=== PATIENT | female | born 1945 | race Caucasian/White ===

== ENCOUNTER → 2020-04-04 10:58 | Outpatient (BNVA) | payer MEDICARE, OTHER, SELFPAY | PROVIDERS: Visit Provider Internal Medicine Cardiovascular Disease | DX: I25.10 Atherosclerotic heart disease of native coronary artery without angina pectoris (principal); Z95.2 Presence of prosthetic heart valve | CPT/HCPCS: 99212 ==

== ENCOUNTER 2020-06-06 12:15 | Outpatient (REF) | payer MEDICARE, OTHER, SELFPAY ==
[2020-06-06 14:40] LABS: Alanine Aminotransferase 26 U/L (0-31); Albumin Level 4.5 g/dL (3.5-5.0); Alkaline Phosphatase 143 U/L (39-117); Anion Gap 17 (12-20); Aspartate Amino Transferase 26 U/L (5-31); Bilirubin Total 0.7 mg/dL (0.0-1.0); Blood Urea Nitrogen 16 mg/dL (9-16); Calcium 9.6 mg/dL (8.4-10.2); Carbon Dioxide 32 mmol/L (22-29); Chloride 97 mmol/L (96-108); Cholesterol 184 mg/dL; Estimated Glomerular Filt Rate 54; Glucose Fasting 106 mg/dL (60-99); HDL Cholesterol 55 mg/dL; LDL Cholesterol Calculated 93 mg/dl; Potassium 4.7 mmol/L (3.3-5.1); Sodium 141 mmol/L (135-145); Total Protein 7.7 g/dL (6.5-8.0); Triglycerides 184 mg/dL
[2020-06-06 14:49] LABS: TSH reflex Free T4 4.04 uIU/mL (0.32-4.0)
[2020-06-06 15:20] LABS: Free T4 (Free Thyroxine) 1.07 ng/dL (0.71-1.85)
== END 2020-06-06 12:16 | disposition home or self-care (01) ==
LOC: HO.10HDL 12:15
PROVIDERS: Visit Provider Internal Medicine
DX: E03.9 Hypothyroidism, unspecified (principal); E78.00 Pure hypercholesterolemia, unspecified
CPT/HCPCS: 36415; 80053; 80061; 84439; 84443

== ENCOUNTER → 2020-10-03 10:41 | Outpatient (BNVA) | payer MEDICARE, OTHER, SELFPAY | PROVIDERS: Visit Provider Internal Medicine Cardiovascular Disease | DX: I25.10 Atherosclerotic heart disease of native coronary artery without angina pectoris (principal); Z95.2 Presence of prosthetic heart valve | CPT/HCPCS: 93005; 99212 ==

== ENCOUNTER → 2020-10-11 09:43 | Outpatient (REF) | payer MEDICARE, OTHER, SELFPAY ==
--- NOTE | 2020-10-11 09:46 | CA_ITS ---
Transthoracic Echocardiogram Patient (Last, First, Middle): Emma Mathis, Gender: Female Date of : 1945 Age: 75 Procedure Date: 10/11/2020 Procedure Type: Transthoracic Echocardiogram Location: OP Height: 154.94 cm Weight: 71.22 kg BSA: 1.70 m2 Heart Rate: bpm BP: 130 / 80 mmHg Under Cutting Machine Operator: RHONDA Referring MD: Dawood Shoemaker MD Symptoms: I42.9 - Cardiomyopathy, unspecified Study Quality: Technically Difficult ECG Rhythm: Sinus Conclusions: - The left ventricular systolic function is normal. The visually estimated ejection fraction is between 60-65%. - E/E prime ratio is >15, consistent with elevated filling pressures. - A bioprosthetic aortic valve is present. The prosthetic aortic valve appears to be functioning normally. Findings Left Ventricle Normal left ventricular cavity size. There is normal left ventricular wall thickness. The left ventricular systolic function is normal. The visually estimated ejection fraction is between 60-65%. The calculated ejection fraction is 63% by biplane method. There is no evidence of regional wall motion abnormalities. E/E prime ratio is >15, consistent with elevated filling pressures. Evidence suggests grade I (mild) diastolic dysfunction. Right Ventricle Normal right ventricular cavity size. There is low normal right ventricular systolic function. Atria Both atria are normal in size. Aortic Valve A bioprosthetic aortic valve is present. The prosthetic aortic valve appears to be functioning normally. The mean gradient is 7 mmHg. There is no aortic valve regurgitation. Mitral Valve There is mild mitral annular calcification. There is mild mitral valve regurgitation. There is no mitral valve stenosis. Pulmonic Valve The pulmonic valve was not well visualized. Tricuspid Valve Normal tricuspid valve structure. There is mild tricuspid valve regurgitation. The pulmonary artery systolic pressure is normal. Great Vessels The asc aorta is normal in size. Venous The inferior vena cava is normal in size and collapses greater than 50% with inspiration. Pericardium/Pleural There is no evidence of pericardial effusion. Prior Study Comparison No significant change compared to prior study dated: 05/13/2019. Measurements M-Mode Liner Measurements Normals - Women/Men AOV Cusps: 1.10 1.5-2.6 cm/m2 2D Linear Measurements IVSd: 0.90 0.6-0.9/0.6-1.0 cm LVIDd: 4.27 3.9-5.3/4.2-5.9 cm LVIDd Index: 2.51 2.4-3.2/2.2-3.1 cm/m2 LVIDs: 3.38 2.0-3.6 cm LVPWd: 0.77 0.7-1.1 cm Ao Root: 1.60 2.1-3.5 cm LA Diam: 3.80 2.7-3.8/3.0-4.0 cm LAIDs Index: 2.24 1.5-2.3 cm/m2 LV Mass: 136.23 67-162/88-224 g LV Mass Index: 80.14 43-95/49-115 g/m2 LVOT Diam: 1.30 3.0+(-)1.3 cm 2D Systolic Function EF 4C: 63.00 >55% EF 2C: 61.90 >55% EF BiP: 62.80 >55% Mitral Valve MV Pk E: 1.21 MV PK A: 1.04 MV Decel Time: 273.00 E/A: 1.20 E'Lateral: 8.49 E'Medial: 3.15 E/E' Med: 38.40 E/E' Lat: 14.30 PHT: 80.00 MVA PHT: 2.75 Decel [place]: 4.41 Aortic Valve AoV Pk Almas: 1.82 AoV Mn Almas: 1.28 AoV VTI: 0.38 AoV Pk Grad: 13.00 Aov Mn Grad: 7.00 TATIANA Cont.VTI: 0.68 LVOT LVOT Pk Almas: 0.82 LVOT Mn Almas: 0.62 LVOT VTI: 0.20 LVOT Pk Grad: 3.00 LVOT Mn Grad: 2.00 LVOT Diam: 1.30 LVOT Area: 1.33 Diastolic Function MV Pk E: 1.21 MV Pk A: 1.04 E/A: 1.20 E'Medial: 3.15 E/E' Med: 38.40 E' Laterial: 8.49 E/E' Lat: 14.30 Tricuspid Valve TR Pk Almas: 2.57 TR Pk Grad: 26.00 RA Press: 3.00 RVSP: 29.00 Great Vessels Aorta Ao Root-2D: 1.60 2.0-3.7 cm Ao Asc: 1.60 2.1-3.4 cm Ao Arch: 1.60 Pulmonary Valve PV Pk Almas: 0.92 Peak PV Grad: 3.00 Updated in Other Vendor System with Status of Final Fili Barger MD electronically signed on 10/11/2020 4:12:44 PM with status of Final
== END ==
LOC: HO.CARD 09:43
PROVIDERS: Visit Provider Internal Medicine Cardiovascular Disease
DX: I42.9 Cardiomyopathy, unspecified (principal); Z95.2 Presence of prosthetic heart valve
CPT/HCPCS: 93306

== ENCOUNTER → 2021-03-30 09:51 | Outpatient (BNVA) | payer MEDICARE, OTHER, SELFPAY | PROVIDERS: PCP Internal Medicine; Visit Provider Internal Medicine Cardiovascular Disease | DX: I25.10 Atherosclerotic heart disease of native coronary artery without angina pectoris (principal); Z95.2 Presence of prosthetic heart valve | CPT/HCPCS: 99212 ==

== ENCOUNTER 2022-02-06 09:49 | Outpatient (REF) | payer MEDICARE, OTHER, SELFPAY ==
[2022-02-06 13:59] LABS: MANUAL DIFF FLAG NO
[2022-02-06 14:05] LABS: Basophils Percent Auto 0.5 % (0-2); Eosinophils Absolute Auto 0.2 X10*3/uL (0.0-0.4); Eosinophils Percent Auto 2.1 % (0-4); Hematocrit 41.8 % (37.0-47.0); Hemoglobin 13.7 g/dl (12.0-16.0); Imm Gran Abs Auto 0.03 X10*3/uL (0.00-0.03); Imm Gran Pct Auto 0.4 % (0.0-0.4); Lymphocytes Absolute Auto 1.5 X10*3/uL (1.2-4.9); Lymphocytes Percent Auto 18.4 % (20-40); Mean Corpuscular HGB Conc 32.8 g/dl (31.0-35.0); Mean Corpuscular Hemoglobin 30.2 pg (27.0-33.0); Mean Corpuscular Volume 92.1 fL (80.0-98.0); Mean Platelet Volume 12.7 fL (9.4-12.3); Monocytes Absolute Auto 0.9 X10*3/uL (0.1-1.2); Monocytes Percent Auto 10.6 % (2-11); Neutrophils Absolute Auto 5.7 x10*3/uL (2.0-8.3); Platelet Count 218 X10*3/uL (160-400); Red Blood Count 4.54 X10*6/uL (4.20-5.50); Red Cell Distribution Width 12.1 % (11.0-16.0); White Blood Count 8.4 X10*3/uL (4.8-10.8)
[2022-02-06 14:17] LABS: Alanine Aminotransferase 24 U/L (0-31); Albumin Level 4.4 g/dL (3.5-5.0); Alkaline Phosphatase 113 U/L (39-117); Anion Gap 17 (12-20); Aspartate Amino Transferase 30 U/L (5-31); Bilirubin Total 0.7 mg/dL (0.0-1.0); Blood Urea Nitrogen 14 mg/dL (9-16); Calcium 9.4 mg/dL (8.4-10.2); Carbon Dioxide 32 mmol/L (22-29); Chloride 98 mmol/L (96-108); Cholesterol 172 mg/dL; Estimated Glomerular Filt Rate 50; Glucose Random 107 mg/dL (60-115); HDL Cholesterol 53 mg/dL; LDL Cholesterol Calculated 93 mg/dl; Potassium 4.1 mmol/L (3.3-5.1); Sodium 143 mmol/L (135-145); Total Protein 7.3 g/dL (6.5-8.0); Triglycerides 134 mg/dL
[2022-02-06 14:40] LABS: Free T4 (Free Thyroxine) 1.16 ng/dL (0.71-1.85); Thyroid Stimulating Hormone 2.39 uIU/mL (0.32-4.0); Vitamin D 25-OH Total 35.1 ng/mL (>30)
== END 2022-02-06 09:50 | disposition home or self-care (01) ==
LOC: HO.MANLDS 09:49
PROVIDERS: Visit Provider Internal Medicine
DX: E03.9 Hypothyroidism, unspecified (principal); E78.00 Pure hypercholesterolemia, unspecified; I35.0 Nonrheumatic aortic (valve) stenosis
CPT/HCPCS: 36415; 80053; 80061; 82306; 84439; 84443; 85025

== ENCOUNTER → 2022-04-02 09:48 | Outpatient (BNVA) | payer MEDICARE, OTHER, SELFPAY | PROVIDERS: PCP Internal Medicine; Visit Provider Internal Medicine Cardiovascular Disease | DX: I25.10 Atherosclerotic heart disease of native coronary artery without angina pectoris (principal); Z95.2 Presence of prosthetic heart valve | CPT/HCPCS: 93005; 99212 ==

== ENCOUNTER → 2022-09-21 08:36 | Outpatient (REF) | payer MEDICARE, OTHER, SELFPAY ==
--- NOTE | 2022-09-21 08:39 | CA_ITS ---
Transthoracic Echocardiogram Patient (Last, First, Middle): Emma Mathis, Gender: Female Date of : 1945 Age: 77 Procedure Date: 09/21/2022 Procedure Type: Transthoracic Echocardiogram Location: OP Height: 154.94 cm Weight: 70.31 kg BSA: 1.70 m2 Heart Rate: 74 bpm BP: 138 / 68 mmHg Plsql Developer: COLLINS Referring MD: Dawood Shoemaker MD Experimental Machining Lab Manager: Dawood Shoemaker MD Symptoms: Z95.2 - Presence of prosthetic heart valve Study Quality: Adequate ECG Rhythm: Sinus Conclusions: - Normal left ventricular size and systolic function. There is mildly increased left ventricular wall thickness. The visually estimated ejection fraction is between 55-60%. - E/E prime ratio is >15, consistent with elevated filling pressures. - Normal right ventricular cavity size and systolic function. - The left atrium is likely dilated. The right atrium is normal in size. - A bioprosthetic aortic valve is present. The prosthetic aortic valve appears to be functioning normally. There is no aortic valve regurgitation. Findings Left Ventricle Normal left ventricular size and systolic function. There is mildly increased left ventricular wall thickness. The visually estimated ejection fraction is between 55-60%. There is no evidence of regional wall motion abnormalities. There is paradoxical septal motion consistent with a left bundle branch block. Abnormal diastolic function is noted. Spectral Doppler is indicative of a pseudonormal filling pattern. E/E prime ratio is >15, consistent with elevated filling pressures. Right Ventricle Normal right ventricular cavity size and systolic function. Atria The left atrium is likely dilated. The right atrium is normal in size. Aortic Valve A bioprosthetic aortic valve is present. The prosthetic aortic valve appears to be functioning normally. There is no aortic valve regurgitation. Mitral Valve There is moderate mitral annular calcification. There is trace mitral valve regurgitation. There is no mitral valve stenosis. Pulmonic Valve Normal pulmonic valve structure and function. There is trace pulmonic valve regurgitation. Tricuspid Valve Normal tricuspid valve structure and function. There is mild tricuspid valve regurgitation. Normal right atrial pressure. There is no evidence of pulmonary hypertension. Great Vessels The visualized portions of the pulmonary artery and branches are normal. Venous The inferior vena cava is normal in size and collapses greater than 50% with inspiration. Pericardium/Pleural There is no evidence of pericardial effusion. Prior Study Comparison No significant change compared to prior study dated: 10/11/2020. Measurements 2D Linear Measurements IVSd: 1.05 0.6-0.9/0.6-1.0 cm LVIDd: 3.78 3.9-5.3/4.2-5.9 cm LVIDd Index: 2.22 2.4-3.2/2.2-3.1 cm/m2 LVIDs: 2.93 2.0-3.6 cm LVPWd: 0.92 0.7-1.1 cm LA Diam: 4.10 2.7-3.8/3.0-4.0 cm LAIDs Index: 2.41 1.5-2.3 cm/m2 LV Mass: 141.65 67-162/88-224 g LV Mass Index: 83.32 43-95/49-115 g/m2 LVOT Diam: 1.80 3.0+(-)1.3 cm 2D Systolic Function EF 4C: 55.40 >55% EF 2C: 48.90 >55% EF BiP: 51.50 >55% Mitral Valve MV VTI: 0.32 MV Pk Almas: 1.23 MV Mn Almas: 0.79 MV Pk Grad: 6.00 MV Mn Grad: 3.00 MV Pk E: 1.31 MV PK A: 1.07 MV Decel Time: 274.00 E/A: 1.20 E'Lateral: 6.73 E'Medial: 2.47 E/E' Med: 53.00 E/E' Lat: 19.50 PHT: 80.00 MVA PHT: 2.75 MVA Continuity: 1.19 Decel [place]: 4.80 Aortic Valve AoV Pk Almas: 1.66 AoV Mn Almas: 1.13 AoV VTI: 0.35 AoV Pk Grad: 11.00 Aov Mn Grad: 6.00 TATIANA Cont.VTI: 1.08 LVOT LVOT Pk Almas: 0.69 LVOT Mn Almas: 0.49 LVOT VTI: 0.15 LVOT Pk Grad: 2.00 LVOT Mn Grad: 1.00 LVOT Diam: 1.80 LVOT Area: 2.54 Diastolic Function MV Pk E: 1.31 MV Pk A: 1.07 E/A: 1.20 E'Medial: 2.47 E/E' Med: 53.00 E' Laterial: 6.73 E/E' Lat: 19.50 Right Ventricle TAPSE (mm): 15.50 TVS' Almas: 9.20 Tricuspid Valve TR Pk Almas: 2.40 TR Pk Grad: 23.00 RA Press: 3.00 RVSP: 26.00 Great Vessels Aorta Ao Asc: 2.40 2.1-3.4 cm Pulmonary Veins Pulm Vein S/D 0.70 Pulmonary Valve PV Pk Almas: 0.86 Peak PV Grad: 3.00 Updated in Other Vendor System with Status of Final Dawood Shoemaker MD electronically signed on 09/21/2022 5:00:46 PM with status of Final
== END ==
LOC: HO.CARD 08:36
PROVIDERS: PCP Internal Medicine; Visit Provider Internal Medicine Cardiovascular Disease
DX: Z95.2 Presence of prosthetic heart valve (principal)
CPT/HCPCS: 93306

== ENCOUNTER → 2022-10-17 08:40 | Outpatient (BNVA) | payer MEDICARE, OTHER, SELFPAY | PROVIDERS: PCP Internal Medicine; Referring Provider Internal Medicine; Visit Provider Internal Medicine Cardiovascular Disease | DX: I25.10 Atherosclerotic heart disease of native coronary artery without angina pectoris (principal); I10 Essential (primary) hypertension; Z95.4 Presence of other heart-valve replacement | CPT/HCPCS: 99212 ==

== ENCOUNTER 2022-12-24 11:02 | Outpatient (REF) | payer MEDICARE, OTHER, SELFPAY ==
[2022-12-24 12:56] LABS: MANUAL DIFF FLAG NO
[2022-12-24 13:08] LABS: Basophils Percent Auto 0.4 % (0-2); Eosinophils Absolute Auto 0.2 X10*3/uL (0.0-0.4); Eosinophils Percent Auto 2.3 % (0-4); Hematocrit 46.6 % (37.0-47.0); Hemoglobin 15.4 g/dl (12.0-16.0); Imm Gran Abs Auto 0.04 X10*3/uL (0.00-0.03); Imm Gran Pct Auto 0.4 % (0.0-0.4); Lymphocytes Absolute Auto 1.7 X10*3/uL (1.2-4.9); Mean Corpuscular Hemoglobin 30.7 pg (27.0-33.0); Mean Corpuscular Volume 92.8 fL (80.0-98.0); Mean Platelet Volume 12.4 fL (9.4-12.3); Monocytes Absolute Auto 1.1 X10*3/uL (0.1-1.2); Monocytes Percent Auto 11.6 % (2-11); Neutrophils Absolute Auto 6.4 x10*3/uL (2.0-8.3); Neutrophils Percent Auto 67.3 % (45-73); Platelet Count 270 X10*3/uL (160-400); Red Blood Count 5.02 X10*6/uL (4.20-5.50); Red Cell Distribution Width 11.7 % (11.0-16.0); White Blood Count 9.5 X10*3/uL (4.8-10.8)
[2022-12-24 13:55] LABS: Alanine Aminotransferase 17 U/L (0-31); Albumin Level 4.9 g/dL (3.5-5.0); Alkaline Phosphatase 130 U/L (39-117); Anion Gap 16 (12-20); Aspartate Amino Transferase 26 U/L (5-31); Bilirubin Total 0.7 mg/dL (0.0-1.0); Blood Urea Nitrogen 16 mg/dL (9-16); Calcium 10.6 mg/dL (8.4-10.2); Carbon Dioxide 31 mmol/L (22-29); Chloride 99 mmol/L (96-108); Estimated Glomerular Filt Rate 50; Glucose Random 105 mg/dL (60-115); Iron 94 mcg/dL (30-160); Percent Iron Saturation 32 % (15-50); Sodium 142 mmol/L (135-145); Total Iron Binding Capacity 298 mcg/dL (228-428); Total Protein 8.9 g/dL (6.5-8.0); Unsaturated Iron Binding 204 ug/dL
[2022-12-24 14:14] LABS: Ferritin 162 ng/mL (10-250); Free T4 (Free Thyroxine) 1.04 ng/dL (0.71-1.85); Thyroid Stimulating Hormone 3.58 uIU/mL (0.32-4.0)
[2022-12-27 01:35] LABS: Zinc 97 mcg/dL (60-130)
== END 2022-12-24 11:03 | disposition home or self-care (01) ==
LOC: HO.MANLDS 11:02
PROVIDERS: Visit Provider Physician Assistant
DX: E03.8 Other specified hypothyroidism (principal); R42 Dizziness and giddiness
CPT/HCPCS: 36415; 80053; 82728; 83540; 84439; 84443; 84630; 85025

== ENCOUNTER 2022-12-25 14:14 | Outpatient (REF) | payer MEDICARE, OTHER, SELFPAY ==
[2022-12-25 17:52] LABS: Calcium 10.8 mg/dL (8.4-10.2); Phosphorus 3.6 mg/dL (2.7-4.5)
[2022-12-25 18:07] LABS: Free T4 (Free Thyroxine) 0.97 ng/dL (0.71-1.85)
[2022-12-26 16:29] LABS: Calcium (PTHI) 9.9 mg/dL (8.6-10.4); PTHI 55 pg/mL (16-77)
[2022-12-27 10:49] LABS: Thyroid Peroxidase Antibodies <1 IU/mL (<9)
== END 2022-12-25 14:15 | disposition home or self-care (01) ==
LOC: HO.MANLDS 14:14
PROVIDERS: Visit Provider Physician Assistant
DX: E83.52 Hypercalcemia (principal)
CPT/HCPCS: 36415; 82310; 83970; 84100; 84439; 84443; 86376

== ENCOUNTER 2023-04-24 09:02 | Outpatient (AMB) | payer MEDICARE, OTHER, SELFPAY ==
[2023-04-24 09:12] VITALS: BP 120/60; PULSE 81; BMI 28.2
--- NOTE | 2023-04-24 09:12 | A.OFFVIS_ITS ---
Intake Vital Signs 04/24/23 09:12 Height 5 ft 1 in Weight 149 lb 7.574 oz BMI 28.2 BP 120/60 Blood Pressure Location Lt brachial Position Sitting Pulse 81 Intake Visit Reasons: 6 mth f/up Intake Note: 6 mth f/up/ pt its feeling fine. 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 Accompanied by: Self / Same As Patient Allergies penicillin G Allergy (Unknown, Verified 10/17/22 09:16) nausea and vomiting vancomycin [VANCOMYCIN] Allergy (Unknown, Verified 10/17/22 09:16) ITCHY/PASSED OUT, anaphylaxis Medication List - Last Reconciled 04/24/23 by Dawood Shoemaker MD aspirin 81 mg PO DAILY atenolol 50 mg PO DAILY atorvastatin 10 mg PO DAILY cholecalciferol (vitamin D3) 25 mcg PO DAILY diltiazem HCl 240 mg PO DAILY famotidine 20 mg PO BID 90 days furosemide 20 mg PO; 2 tabs in AM 1 tab PM levothyroxine 25 mcg PO HPI HPI Comments History of Present Illness Details Pleasant 78-year-old female who is here for follow-up. 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 She had aortic valve replacement but developed aortic insufficiency and stenosis. She had valve in valve transcatheter aortic valve replacement done and has been doing well. She has no chest pain. No bleeding issues. She had left knee surgery recently and is walking more. Continues to be asymptomatic. No chest pain or shortness of breath. Blood pressure control is good. She had repeat echocardiography showing normally functioning bioprosthetic valve in aortic position. She continues to be clinically stable. 04/24/2023: She returns for follow-up. She had echocardiography in August 2022. LVEF was 55-60%, elevated filling pressures, normal right ventricular size and function, bioprosthetic valve in aortic position which is functioning normally without any aortic insufficiency. Denying any new complaints. Chest discomfort or shortness of breath. Blood pressure is well controlled. [facility] Surgical History History of cataract surgery H/O right mastectomy History of lumpectomy Aortic valve replaced History of knee surgery Family History Mother CVD (cardiovascular disease) Father Diabetes CVD (cardiovascular disease) Sister Cancer Brother Heart disease Social History Alcohol intake: current Alcohol intake frequency: holidays/special occasions only Alcohol type: wine Patient Tobacco Use Status: Former Tobacco user Quit Date: 1984 Review of Systems Const Reports chills, Reports fatigue, Reports fever(s), Reports frequent falls, Reports weakness, Reports weight gain and Reports weight loss ENT Reports dizziness Card Reports chest pain, Reports leg edema, Reports lightheadedness, Reports palpitations, Reports dyspnea and Reports dyspnea on exertion Resp Reports cough, Reports dyspnea and Reports dyspnea on exertion GI Reports hematochezia Musc Reports abnormal gait, Reports muscle weakness, Reports numbness, Reports radiating pain into limb and Reports tingling Neuro Reports abnormal gait, Reports dizziness, Reports frequent falls, Reports numbness, Reports tingling and Reports weakness Endo Reports fatigue and Reports palpitations Physical Exam Vital Signs: BMI result Body Mass Index 28.2 GENERAL APPEARANCE: in no acute distress, well developed, well nourished. NECK/THYROID: Systolic murmur radiating to carotids, no jugular venous distention. HEART: Systolic murmur, regular rate and rhythm, S1, S2 normal. LUNGS: clear to auscultation bilaterally. ABDOMEN: normal, bowel sounds present, soft, nontender, nondistended. EXTREMITIES: no clubbing, cyanosis, or edema. PERIPHERAL PULSES: equal. NEUROLOGIC: nonfocal, alert and oriented. PSYCH: mood/affect full range. Office Procedures EKG Details: Sinus rhythm 81 beats per minute, leftward axis, left bundle branch block. [id number], Complete Assessment & Plan Assessment & Plan (1) CAD (coronary artery disease): Code(s): I25.10 - Atherosclerotic heart disease of [place] coronary artery without angina pectoris (2) S/P TAVR (transcatheter aortic valve replacement): Code(s): Z95.2 - Presence of prosthetic heart valve Plan Pleasant 78-year-old female who is here for follow-up. She had valve in valve TAVR for aortic insufficiency and stenosis. She has been doing well since then. Last echocardiography in August 2022 has shown normally functioning bioprosthetic valve without any aortic insufficiency. Blood pressure is well controlled. She is not endorsing any anginal symptoms. She will see us back in 1 year. Thank you for allowing me to participate in the care of your patient. Please feel free to contact me if you have any questions. Coding Level of Care Code Est Pt Level 4 (25744) Diagnoses CAD (coronary artery disease) I25.10 S/P TAVR (transcatheter aortic valve replacement) Z95.2 CPT Codes EKG - CPT: 63400-[id number], Complete ([id number])
== END 2023-04-24 09:37 | disposition home or self-care (01) ==
PROVIDERS: PCP Internal Medicine; Visit Provider Internal Medicine Cardiovascular Disease
DX: I25.10 Atherosclerotic heart disease of native coronary artery without angina pectoris (principal); Z95.2 Presence of prosthetic heart valve
CPT/HCPCS: 93010; 99214

== ENCOUNTER → 2023-04-24 09:02 | Outpatient (BNVA) | payer MEDICARE, OTHER, SELFPAY | PROVIDERS: PCP Internal Medicine; Visit Provider Internal Medicine Cardiovascular Disease | DX: I25.10 Atherosclerotic heart disease of native coronary artery without angina pectoris (principal); Z95.2 Presence of prosthetic heart valve | CPT/HCPCS: 93005; 99212 ==

== ENCOUNTER 2023-12-24 07:25 | Outpatient (REF) | payer MEDICARE, OTHER, SELFPAY ==
[2023-12-24 10:41] LABS: MANUAL DIFF FLAG NO
[2023-12-24 10:53] LABS: Basophils Absolute Auto 0.1 X10*3/uL (0.0-0.2); Basophils Percent Auto 0.5 % (0-2); Eosinophils Absolute Auto 0.3 X10*3/uL (0.0-0.4); Eosinophils Percent Auto 2.2 % (0-4); Hematocrit 41.5 % (37.0-47.0); Hemoglobin 13.8 g/dl (12.0-16.0); Imm Gran Abs Auto 0.08 X10*3/uL (0.00-0.03); Imm Gran Pct Auto 0.7 % (0.0-0.4); Lymphocytes Absolute Auto 2.2 X10*3/uL (1.2-4.9); Mean Corpuscular HGB Conc 33.3 g/dl (31.0-35.0); Mean Corpuscular Hemoglobin 31.9 pg (27.0-33.0); Mean Corpuscular Volume 96.1 fL (80.0-98.0); Mean Platelet Volume 12.1 fL (9.4-12.3); Monocytes Absolute Auto 1.2 X10*3/uL (0.1-1.2); Neutrophils Absolute Auto 7.8 x10*3/uL (2.0-8.3); Neutrophils Percent Auto 67.6 % (45-73); Platelet Count 261 X10*3/uL (160-400); Red Blood Count 4.32 X10*6/uL (4.20-5.50); White Blood Count 11.5 X10*3/uL (4.8-10.8)
[2023-12-24 11:10] LABS: Alanine Aminotransferase 14 U/L (0-31); Albumin Level 4.2 g/dL (3.5-5.0); Alkaline Phosphatase 110 U/L (39-117); Anion Gap 12 (12-20); Aspartate Amino Transferase 20 U/L (5-31); Bilirubin Total 0.6 mg/dL (0.0-1.0); Blood Urea Nitrogen 19 mg/dL (9-16); Calcium 9.9 mg/dL (8.4-10.2); Carbon Dioxide 33 mmol/L (22-29); Chloride 98 mmol/L (96-108); Cholesterol 202 mg/dL (<200); Estimated Glomerular Filt Rate 53; Glucose Random 135 mg/dL (60-115); HDL Cholesterol 59 mg/dL (>40); LDL Cholesterol Calculated 116 mg/dL (<100); Potassium 4.7 mmol/L (3.3-5.1); Sodium 138 mmol/L (135-145); Total Protein 7.5 g/dL (6.5-8.0); Triglycerides 139 mg/dL (<150)
[2023-12-24 11:31] LABS: Free T4 (Free Thyroxine) 0.97 ng/dL (0.71-1.85)
== END 2023-12-24 07:26 | disposition home or self-care (01) ==
LOC: HO.10HDL 07:25
PROVIDERS: Visit Provider Internal Medicine
DX: E78.2 Mixed hyperlipidemia (principal); E03.8 Other specified hypothyroidism
CPT/HCPCS: 36415; 80053; 80061; 84439; 84443; 85025

== ENCOUNTER 2024-06-08 15:15 | Outpatient (AMB) | payer MEDICARE, OTHER, SELFPAY ==
--- NOTE | 2024-06-08 15:24 | MHC.OFFVIS ---
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 Accompanied by: Self / Same As Patient Allergies penicillin G Allergy (Unknown, Verified 10/17/22 09:16) nausea and vomiting vancomycin [VANCOMYCIN] Allergy (Unknown, Verified 10/17/22 09:16) ITCHY/PASSED OUT, anaphylaxis Medication List - Last Reconciled 06/08/24 by Dawood Shoemaker MD aspirin 81 mg PO DAILY atenolol 50 mg PO DAILY atorvastatin 10 mg PO DAILY cholecalciferol (vitamin D3) 25 mcg PO DAILY diltiazem HCl CD 240 mg PO DAILY famotidine 20 mg PO BID 90 days furosemide 20 mg PO; 2 tabs in AM 1 tab PM levothyroxine 25 mcg PO HPI Comments Details: Pleasant 79-year-old female who is here for follow-up. 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 She had aortic valve replacement but developed aortic insufficiency and stenosis. She had valve in valve transcatheter aortic valve replacement done and has been doing well. She has no chest pain. No bleeding issues. She had left knee surgery recently and is walking more. Continues to be asymptomatic. No chest pain or shortness of breath. Blood pressure control is good. She had repeat echocardiography showing normally functioning bioprosthetic valve in aortic position. She continues to be clinically stable. 04/24/2023: She returns for follow-up. She had echocardiography in August 2022. LVEF was 55-60%, elevated filling pressures, normal right ventricular size and function, bioprosthetic valve in aortic position which is functioning normally without any aortic insufficiency. Denying any new complaints. Chest discomfort or shortness of breath. Blood pressure is well controlled. 06/08/24: She is here for f/u. She has been experiencing balance issues x 1 year. She is saying she tends to fall fowards or backwards. She has fallen a few times. She is saying this started after the COVID booster. She said she had head manuevering by PT for what appears like BPPV with some improvement but still has a lot of symptoms. [facility] Surgical History History of cataract surgery H/O right mastectomy History of lumpectomy Aortic valve replaced History of knee surgery Family History Mother CVD (cardiovascular disease) Father Diabetes CVD (cardiovascular disease) Sister Cancer Brother Heart disease Social History Alcohol intake: current Alcohol intake frequency: holidays/special occasions only Alcohol type: wine Patient Tobacco Use Status: Former Tobacco user Review of Systems Const Denies chills, Denies fatigue, Denies fever(s), Denies weight gain and Denies weight loss ENT Denies dizziness Card Denies chest pain, Denies leg edema, Denies lightheadedness, Denies palpitations, Denies dyspnea on exertion, Denies orthopnea and Denies other Resp Denies cough and Denies dyspnea on exertion GI Denies hematochezia and Denies change in stool character Musc Denies abnormal gait, Denies muscle weakness, Denies numbness, Denies radiating pain into limb and Denies tingling Neuro Denies abnormal gait, Denies dizziness, Denies numbness and Denies tingling Endo Denies fatigue and Denies palpitations Physical Exam Vital Signs: Last Vital Signs Pulse 75 06/08/24 15:25 BP 142/58 H 06/08/24 15:25 BMI result Body Mass Index 27.4 GENERAL APPEARANCE: in no acute distress, well developed, well nourished. NECK/THYROID: Systolic murmur radiating to carotids, no jugular venous distention. HEART: No murmur, regular rate and rhythm, S1, S2 normal. LUNGS: clear to auscultation bilaterally. ABDOMEN: normal, bowel sounds present, soft, nontender, nondistended. EXTREMITIES: no clubbing, cyanosis, or edema. PERIPHERAL PULSES: equal. NEUROLOGIC: nonfocal, alert and oriented. PSYCH: mood/affect full range. Office Procedures EKG Details: Sinus rhythm 75 beats per minute, left axis, left bundle-branch block with QRS duration 26 milliseconds, prolonged QT with QTC 515 milliseconds. [id number], Complete Assessment & Plan Assessment & Plan (1) S/P TAVR (transcatheter aortic valve replacement): Code(s): Z95.2 - Presence of prosthetic heart valve Category: Medical Plan 79 year old with TAVR in TAVR for AI-doing well. Clinically stable. No angina. She has balance issues. Some features seem like BPPV. I am giving her script for meclizine PRN. She will discuss with PCP about referral to PT for Shanda-Hallpike maneuver. BP stable. f/u in 1 year. Medications: New meclizine 25 mg PO DAILY PRN 30 tabs 0RF motion sickness Coding Level of Care Code Est Pt Level 4 (59407) Diagnoses S/P TAVR (transcatheter aortic valve replacement) Z95.2 CPT Codes EKG - CPT: 02131-[id number], Complete ([id number])
[2024-06-08 15:25] VITALS: BP 142/58; PULSE 75; BMI 27.4
== END 2024-06-08 15:57 | disposition home or self-care (01) ==
PROVIDERS: PCP Internal Medicine; Visit Provider Internal Medicine Cardiovascular Disease
DX: Z95.2 Presence of prosthetic heart valve (principal)
CPT/HCPCS: 93010; 99214

== ENCOUNTER → 2024-06-08 15:15 | Outpatient (BNVA) | payer MEDICARE, OTHER, SELFPAY | PROVIDERS: PCP Internal Medicine; Visit Provider Internal Medicine Cardiovascular Disease | DX: I44.7 Left bundle-branch block, unspecified (principal); R94.31 Abnormal electrocardiogram [ECG] [EKG]; Z95.2 Presence of prosthetic heart valve | CPT/HCPCS: 93005; 99212 ==

== ENCOUNTER 2024-06-23 12:04 | Outpatient (REF) | payer MEDICARE, OTHER, SELFPAY ==
[2024-06-23 13:18] LABS: Estimated Average Glucose 117 mg/dL; Hemoglobin A1C 139.7066 umol/L; Hemoglobin A1c % 5.7 % (<6.0)
--- OUTSIDE RECORDS SUMMARY | 2024-06-23 14:46 | XMS_ITS | Data Portability ---
Author Organization [facility] Home Service Address [address] [place] [address] Assessment Encounter Date Assessment Date Assessment LastModified by Organization Details LastModified Time 02/25/2023 02/25/2023 [id number] [place] [id number] (PROJECT CONTROLLER) [facility] MUST MEET 2 OUT OF 3 ELEMENTS: PROBLEMS, DATA OR RISK ELEMENT 1: PROBLEMS ADDRESSED 1 OR MORE CHRONIC ILLNESS WITH EXACERBATION OR 2 OR MORE STABLE CHRONIC ILLNESSES OR 1 UNDIAGNOSED NEW PROBLEM OR 1 ACUTE ILLNESS W/SYMPTOMS OR 1 ACUTE COMPLICATED INJURY ELEMENT 2: DATA MUST MEET 1 OF 3 CATEGORIES CATEGORY 1: REVIEW OF PRIOR EXTERNAL NOTES, REVIEW OF RESULTS, ORDERING OF EACH TEST, ASSESSMENT REQUIRING INDEPENDENT HISTORIAN OR CATEGORY 2: INDEPENDENT INTERPRETATION OF TESTS BY ANOTHER PHYSICIAN OR SPECIALIST OR CATEGORY 3: DISCUSSION OF MGT OR TEST INTERPRETATION W/EXTERNAL PHYSICIAN OR SPECIALIST ELEMENT 3: RISK RISK OF COMPLICATIONS AND/OR MORBIDITY OR MORTALITY OF PATIENT MANAGEMENT PROVIDER MUST THOROUGHLY DOCUMENT EACH ELEMENT THAT IS COVERED Not available 02/25/2023 11:04:54 03/29/2023 03/29/2023 [id number] [place] [id number] (PROJECT CONTROLLER) [facility] MUST MEET 2 OUT OF 3 ELEMENTS: PROBLEMS, DATA OR RISK ELEMENT 1: PROBLEMS ADDRESSED 1 OR MORE CHRONIC ILLNESS WITH EXACERBATION OR 2 OR MORE STABLE CHRONIC ILLNESSES OR 1 UNDIAGNOSED NEW PROBLEM OR 1 ACUTE ILLNESS W/SYMPTOMS OR 1 ACUTE COMPLICATED INJURY ELEMENT 2: DATA MUST MEET 1 OF 3 CATEGORIES CATEGORY 1: REVIEW OF PRIOR EXTERNAL NOTES, REVIEW OF RESULTS, ORDERING OF EACH TEST, ASSESSMENT REQUIRING INDEPENDENT HISTORIAN OR CATEGORY 2: INDEPENDENT INTERPRETATION OF TESTS BY ANOTHER PHYSICIAN OR SPECIALIST OR CATEGORY 3: DISCUSSION OF MGT OR TEST INTERPRETATION W/EXTERNAL PHYSICIAN OR SPECIALIST ELEMENT 3: RISK RISK OF COMPLICATIONS AND/OR MORBIDITY OR MORTALITY OF PATIENT MANAGEMENT PROVIDER MUST THOROUGHLY DOCUMENT EACH ELEMENT THAT IS COVERED Not available 03/29/2023 14:11:28 07/16/2023 07/16/2023 [id number] [place] [id number] (PROJECT CONTROLLER) [facility] MODERATE MUST MEET 2 OUT OF 3 ELEMENTS: PROBLEMS, DATA OR RISK ELEMENT 1: PROBLEMS ADDRESSED 1 OR MORE CHRONIC ILLNESS WITH EXACERBATION OR 2 OR MORE STABLE CHRONIC ILLNESSES OR 1 UNDIAGNOSED NEW PROBLEM OR 1 ACUTE ILLNESS W/SYMPTOMS OR 1 ACUTE COMPLICATED INJURY ELEMENT 2: DATA MUST MEET 1 OF 3 CATEGORIES CATEGORY 1: REVIEW OF PRIOR EXTERNAL NOTES, REVIEW OF RESULTS, ORDERING OF EACH TEST, ASSESSMENT REQUIRING INDEPENDENT HISTORIAN OR CATEGORY 2: INDEPENDENT INTERPRETATION OF TESTS BY ANOTHER PHYSICIAN OR SPECIALIST OR CATEGORY 3: DISCUSSION OF MGT OR TEST INTERPRETATION W/EXTERNAL PHYSICIAN OR SPECIALIST ELEMENT 3: RISK RISK OF COMPLICATIONS AND/OR MORBIDITY OR MORTALITY OF PATIENT MANAGEMENT PROVIDER MUST THOROUGHLY DOCUMENT EACH ELEMENT THAT IS COVERED Not available 07/16/2023 15:23:56 01/22/2024 01/22/2024 [id number] [place] [id number] (PROJECT CONTROLLER) MDM MODERATE MUST MEET 2 OUT OF 3 ELEMENTS: PROBLEMS, DATA OR RISK ELEMENT 1: PROBLEMS ADDRESSED 1 OR MORE CHRONIC ILLNESS WITH EXACERBATION OR 2 OR MORE STABLE CHRONIC ILLNESSES OR 1 UNDIAGNOSED NEW PROBLEM OR 1 ACUTE ILLNESS W/SYMPTOMS OR 1 ACUTE COMPLICATED INJURY ELEMENT 2: DATA MUST MEET 1 OF 3 CATEGORIES CATEGORY 1: REVIEW OF PRIOR EXTERNAL NOTES, REVIEW OF RESULTS, ORDERING OF EACH TEST, ASSESSMENT REQUIRING INDEPENDENT HISTORIAN OR CATEGORY 2: INDEPENDENT INTERPRETATION OF TESTS BY ANOTHER PHYSICIAN OR SPECIALIST OR CATEGORY 3: DISCUSSION OF MGT OR TEST INTERPRETATION W/EXTERNAL PHYSICIAN OR SPECIALIST ELEMENT 3: RISK RISK OF COMPLICATIONS AND/OR MORBIDITY OR MORTALITY OF PATIENT MANAGEMENT PROVIDER MUST THOROUGHLY DOCUMENT EACH ELEMENT THAT IS COVERED Not available 01/22/2024 11:06:51 Plan of Treatment Reminders Order Date Submit Date Provider Last Modified By Organization Details Last Modified Time Details Appointments FOLLOW UP 15 2024 10:30A M DR CLARK Not available Not available Not available Lab HbA1c (hemoglob in A1c), blood 2023 024 [facility], [address] [place] [address], [id number], 01/22/2024 11:18:24 lipid panel, blood 2023 024 [facility], [address] [place] [address], [address], 07/23/2023 08:04:16 CMP, serum or plasma 2023 024 [facility], [address] [place] [address], [address], 07/23/2023 08:04:16 CBC w/ auto diff 2023 024 [facility], [address] [place] [address], [address], 07/16/2023 15:25:42 TSH + free T4, serum 2023 024 [facility], [address] [place] [address], [address], 07/16/2023 15:25:42 zinc, serum or plasma 2022 023 [facility], [address] [place] [address], [address], 12/27/2022 11:53:11 CMP, serum or plasma 2022 023 [facility], [address] [place] [address], [address], 12/25/2022 11:32:06 TSH + free T4, serum 2022 023 [facility], [address] [place] [address], [address], 12/25/2022 11:32:06 CBC w/ auto diff 2022 023 [facility], [address] [place] [address], [address], 12/25/2022 11:32:07 iron + TIBC + ferritin, serum 2022 023 [facility], [address] [place] [address], [address], 12/24/2022 10:50:41 Referral vestibula r therapy referral 2022 023 ISAEL [facility], [address] [facility] [facility], [place], [address], 03/08/2023 07:13:51 Procedures None recorded. Surgeries None recorded. Imaging CT, head + brain, w/o contrast 2022 023 Not available 12/25/2022 09:58:37 Medication Orders scopolami ne 1 mg over 3 days transderm al patch 2022 023 [id number], [address], [place], [phone], 03/29/2023 13:57:53 scopolami ne 1 mg over 3 days transderm al patch 2022 023 [id number], [address], [place], [phone], 03/29/2023 13:57:53 Patient TargetsNo targets recorded. Patient Instructions Encounter Date Encounter Id Patient Instructions Last Modified By Organization Details Last Modified Time 12/24/2022 [id number] pulse oximetry* ISAEL Not available 12/24/2022 11:01:07 02/25/2023 [id number] pulse oximetry* Not available 02/25/2023 11:03:10 03/29/2023 [id number] hypercalcemia: care instructions Not available 03/29/2023 14:03:36 pulse oximetry* ISAEL Not available 03/29/2023 14:20:23 01/22/2024 [id number] learning about high blood sugar Not available 01/22/2024 11:07:42 pulse oximetry* Not available 01/22/2024 11:07:43 heart failure: care instructions Not available 01/22/2024 11:07:43 learning about heart failure Not available 01/22/2024 11:07:42 Reason for Referral Vestibular Therapy Referral for Positional vertigo Referring Physician: Alejo Clark, Internal Medicine, Encounter Date: 02/25/2023 Results Created Date Observation Date Name Description Value Unit Range Abnormal Flag Note LastModifiedBy Organization Detail LastModifiedTime 12/25/19 23 12/24/2022 pulse oxime try* Result 99 Not Available [facility] [address], [place], [address], 12/18/2022 16:13:32 02/26/20 23 02/25/2023 pulse oxime try* Result 98 Not Available [facility] [address] [facility], [place], [address], 02/15/2023 16:18:03 03/29/20 23 03/29/2023 pulse oxime try* Result 99% Not Available [facility] [address], [place], [address], 03/27/2023 09:28:53 01/22/20 24 01/22/2024 pulse oxime try* Result 95 Not Available [facility] [address], [place], [address], 01/20/2024 11:23:25 01/22/20 23 01/21/2023 CT, head + brain , w/o contr ast No observ ation record ed. [email or web address] [facility] [address] [facility], [place], [address], 01/22/2023 15:09:10 10/25/19 24 10/25/2023 MAMMO , scree nany, digit al, bilat eral No observ ation record ed. [email or web address] [facility] [address] [place], [address], 10/25/2023 15:44:07 Result Notes None recorded. Problems Name Problem SNOMED Code Status Onset Date Resolution Date Notes Provider Name and Address Organization Details Recorded Time Congesti ve heart failure 37750093 Completed 201808/25/2019 Alejo Clark, DO [address] [place], [address], [facility] 2 11:46:30 Coronary atherosc lerosis 721739022 Completed 201702/01/2020 Dr. gunter cardiolo gist Alejo Truongjayla, DO [address] [place], [address], [facility] 0 12:24:43 Hypothyr oidism 59061084 Active 2017 Not Available [facility] 3 18:28:21 Hypercho lesterol emia 50693336 Active 2017 Not Available [facility] 3 18:28:21 History of malignan t neoplasm of breast 754413479 Active 2017 left in 20's, right -2006 mastecto my Not Available [facility] 3 18:28:21 Pulmonar y embolism 51156465 Completed 201707/09/2017 s/p chemo Margaret Yip, EDDIE, S [address] [place], [address], [facility] 8 15:27:09 Aortic valve stenosis 00750102 Active 2018 s/p bovine valve 2014 which was replaced Not Available [facility] 3 18:28:21 Osteoart hritis of knee 930686507 Active 2017 left, NEOS cortison e Not Available [facility] 3 18:28:21 Congesti ve heart failure 30821310 Active 2021 Not Available [facility] 3 18:28:21 Dizzines s 477448684 Active 2022 Not Available [facility] 3 18:28:21 Vertigo 441278223 Active 2022 Not Available [facility] 3 18:28:21 Hypercal cemia 59712508 Active 2022 Not Available [facility] 3 18:28:21 Position al vertigo 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 Procedures Surgical History Date Name Laterality Status Provider Name and Address Organization Details Recorded Time 019 transcatheter aortic valve replacement completed Margaret Yip NP, S [address] [place] [address], [phone], [facility] 06/06/2018 08:43:40 006 Breast Surgery completed Margaret Yip NP, S [address] [place] [address], [address], [facility] 12/24/2017 08:43:23 Breast Biopsy completed Margaret monte NP, S [address] [place] [address], [address], [facility] 12/24/2017 08:43:40 Imaging Results Imaging Date Name Status LastModified by Organiz ation Details LastModified Time 01/21/2023 CT, head + brain, w/o contrast completed [email or web address] [place] [address] Diagnostic Imaging [address] [place], [address], 01/22/2023 15:09:10 10/25/2023 MAMMO, screening, digital, bilateral completed [address] [facility] [address] [place], [address], 10/25/2023 15:44:07 Procedure Notes None recorded. Medical Equipment None Reported. Allergies Allergen ID Allergen Name Allergen Category Reaction Reaction Severity Criticality Documentation Date Start Date Code Code System Note Provider Name and Address Organization Details Recorded Time 505 Product containin g penicilli n (product) medicatio n Not available Not available Not available 07/09/2017 05319 8001 SNOMED upset stoma ch [facility] 0 10:02:46 506 vancomyci n medicatio n Not available Not available Not available 07/09/2017 06062 RxNorm synco pe JEFFRY [facility] 0 10:02:54 Medications Name Sig Start Date Stop Date Status Note LastModified by Organization Details LastModified Time doxycycline hyclate 100 mg capsule TAKE 1 CAPSULE BY MOUTH TWICE DAILY WITH FOOD FOR 10 DAYS. PHOTOSENS ITIVE MEDICATIO N. 01/21 completed Not Available Not Available Not Available clindamycin HCl 300 mg capsule TAKE 2 CAPSULE BY MOUTH 1 HOUR BEFORE APPOINTME T active Not Available Not Available No t Available atorvastati n 10 mg tablet TAKE 1 TABLET DAILY 2023 active Not Available Not Available Not Avai lable potassium chloride (bulk) granules 12/24 completed Not Available Not Available Not Available atenolol 25 mg tablet 08/20 completed Not Available Not Available Not Available clindamycin HCl 150 mg capsule TAKE 4 CAPSULES BY MOUTH 1 HOUR BEFORE DENTAL APPOINTME NT 12/24 completed Not Available Not Available Not Available diltiazem ER 240 mg capsule,24 hr,extended release 08/24 completed Not Available Not Available Not Available meclizine 12.5 mg tablet TAKE 1 TABLET BY MOUTH THREE TIMES DAILY FOR 14 DAYS NEEDED 02/25 completed Not Available Not Available Not Available chlorthalid one 25 mg tablet Take 1 tablet every day by oral route for 90 days. 04/16 completed Not Available Not Available Not Available tramadol 50 mg tablet Take 1 tablet every 12 hours by oral route. 08/24 completed Not Available Not Available Not Available levothyroxi ne 25 mcg tablet TAKE 1 TABLET EVERY OTHER DAY, ALTERNATI NG WITH ONE-HALF (1/2) TABLET active Not Available Not Available No t Available Tenoretic 50 50 mg-25 mg tablet Take 1 tablet every day by oral route. 05/02 completed Not Available Not Available Not Available potassium chloride ER 20 mEq tablet,exte nded release(par t/cryst) TAKE 1 TABLET DAILY 12/24 completed Not Available Not Available Not Available Cardizem CD 240 mg capsule,ext ended release Take 1 capsule every day by oral route for 90 days. active Not Available Not Available No t Available famotidine 20 mg tablet TAKE 1 TABLET DAILY NEEDED active Not Available Not Available No t Available mupirocin 2 % topical ointment 12/24 completed Not Available Not Available Not Available furosemide 20 mg tablet TAKE 1 TABLET THREE TIMES A DAY active Not Available Not Available No t Available fluocinolon e 0.01 % topical solution active Not Available Not Available Not Available scopolamine 1 mg over 3 days transdermal patch USE PATCH EVERY 3 DAYS 03/29 completed Not Available Not Available Not Available ketoconazol e 2 % topical cream active Not Available Not Available Not Available atenolol 50 mg tablet TAKE 1 TABLET DAILY 2023 active Not Available Not Available Not Avai lable oxycodone 5 mg tablet TK 1 TO 2 TS PO Q 4 TO 6 H PRF PAIN. MAY REQUEST PARTIAL FILL 07/12 completed Not Available Not Available Not Available ciclopirox 0.77 % topical cream APPLY TWICE DAILY TO RASH OF FOLD AREAS NEEDED. MAY MIX WITH OTC HYDROCORT ISONE FOR MARKED IRRITATIO N active Not Available Not Available No t Available DILT-XR 240 mg capsule, extended release Take 1 capsule every day by oral route. 07/12 completed Not Available Not Available Not Available aspirin 81 mg daily active Not Available Not Available No t Available levothyroxi ne 25 mcg 1tab, alt w/ 1&1/2 08/24 completed Not Available Not Available Not Available Vitamin D3 active Not Available Not Av ailable Not Available Eliquis 5 mg tablet Take 2 tablets every day by oral route for 30 days. 08/24 completed Not Available Not Available Not Available Eliquis 2.5 mg tablet 1 po bid 01/19 completed Not Available Not Available Not Available Fluzone High-Dose 9635-4678 (PF) 180 mcg/0.5 mL intramuscul ar syringe 03/17 completed Not Available Not Available Not Available Fluzone High-Dose 2018- (PF) 180 mcg/0.5 mL intramuscul ar syringe 08/24 completed Not Available Not Available Not Available Fluad Quad 1470-6493(6 5yr up)(PF) 60 mcg (15 mcg x 4)/0.5mL IM syringe 07/12 completed Not Available Not Available Not Available Vitals Date Recorded Body height Heart rate Oxygen saturation Oxygen saturation in Arterial blood by Pulse oximetry Systolic blood pressure Diastolic blood pressure Provider Name and Address Organization Details Last Updated DateTime 3 154.31 cm 81 /min 98 % 98 % 172 mm[Hg] 62 mm[Hg] TARAN SANCHES [address] [place], [address] [place] [address] [facility] 3 10:34:18 Date Recorded Body height Body weight Heart rate Oxygen saturation Oxygen saturation in Arterial blood by Pulse oximetry Systolic blood pressure Diastolic blood pressure Provider Name and Address Organization Details Last Updated DateTime 3 154.31 cm 35270.8 6 g 75 /min 98 % 98 % 131 mm[Hg] 72 mm[Hg] Angelica [facility] 3 10:15:42 Date Recorded Body height Body mass index (BMI) Body weight Heart rate Oxygen saturation Oxygen saturation in Arterial blood by Pulse oximetry Systolic blood pressure Diastolic blood pressure Provider Name and Address Organization Details Last Updated DateTime 3 154.31 cm 28 kg/m2 25727.0 8 g 84 /min 99 % 99 % 142 mm[Hg] 71 mm[Hg] [facility] 3 13:47:23 Date Recorded Body height Body mass index (BMI) Body weight Heart rate Oxygen saturation Oxygen saturation in Arterial blood by Pulse oximetry Systolic blood pressure Diastolic blood pressure Provider Name and Address Organization Details Last Updated DateTime 4 154.31 cm 29 kg/m2 12291.0 4 g 85 /min 95 % 95 % 150 mm[Hg] 82 mm[Hg] Annika Lyons [facility] 4 14:55:08 Date Recorded Body height Body mass index (BMI) Body weight Heart rate Oxygen saturation Oxygen saturation in Arterial blood by Pulse oximetry Systolic blood pressure Diastolic blood pressure Provider Name and Address Organization Details Last Updated DateTime 4 152.4 cm 28.5 kg/m2 86744.4 9 g 87 /min 95 % 95 % 136 mm[Hg] 70 mm[Hg] Alejo Clark DO [address] [place], [address] [place] [address] Internal Medicine 4 10:37:07 Social History Question Answer Notes LastModified by Organizat ion Details LastModified Time Tobacco Smoking Status Former Smoker smoked in her 20s Angelica membreno [facility] 03/29/2023 13:45:38 What Was The Date Of Your Most Recent Tobacco Screening? 01/22/2024 Information not available 01/22/2024 Do You Or Have You Ever Used Any Other Forms Of Tobacco Or Nicotine? No Information not available 07/11/2022 Sex: Unknown Functional Status None recorded. Mental Status None recorded. Family History Relationship Description Onset Age of this Age Resolved Age Notes LastModified by Organization Details LastModified Time Maternal Aunt Malignant tumor of breast tbalicki Not available 2018 16:39:46 Sister Malignant tumor of pancreas tbalicki Not available 2018 16:40:07 Medical History Condition Response Coronary Artery Disease N Gout N Other Kidney Stones N Blood Diseases N Hyperthyroidism N Blood Transfusion Y Breast Cancer Y COPD N Hypothyroidism Y Lung Disease N Depression N Defects or Inherited Disease N Difficulty Swallowing N Anesthesia Complications N Anxiety Disorder N Meniere's disease N Muscle, Joint, or Bone Problems N Obesity Y Vision or Eye Problems N Arthritis Y Infertility N Polyps N Mental Disorder N Cancer Y Varicosities Stroke N Bladder or Kidney Problems N High Cholesterol Y Liver Disease N Fibromyalgia N Headaches N Kidney Disease N Allergies/Hayfever N Hospitalizations Y Thyroid Problems Y GI Problems N Eating Disorder N Skin Problems N Anemia N MRSA exposure N Constipation N Mental Illness N Diabetes N Seizures/Epilepsy N Congestive Heart Failure (CHF) N Eczema N Abuse/Domestic Violence N Diverticulitis N Asthma N Reflux/GERD Y Hepatitis N Heart Disease N Pulmonary Embolism Y Chronic Ear Infections N Pre-Eclampsia N Hypertension Y Autism Spectrum Disorder (ASD) N Osteoporosis N Thrombophilias N Gynecological HistoryNo gynecological history recorded. Obstetrics History GPAL:G 0 P 0 0 0 0 Immunizations Vaccine Type Date Status Note Provider Nam e and Address Organization Details Recorded Time influenza, unspecified formulation 2 completed Not Available [facility] 12/26/2022 18:28:22 Influenza, split virus, quadrivalent, preservative 8 completed Not Available [facility] 12/26/2022 18:28:22 Influenza, split virus, quadrivalent, preservative 9 completed Not Available [facility] 12/26/2022 18:28:22 Influenza, split virus, quadrivalent, preservative 0 completed Not Available [facility] 12/26/2022 18:28:22 Influenza, adjuvanted, trivalent, PF 7 completed Not Available [facility] 12/26/2022 18:28:22 pneumococcal, unspecified formulation 0 completed Not Available [facility] 12/26/2022 18:28:22 pneumococcal, unspecified formulation 5 completed Not Available [facility] 12/26/2022 18:28:22 Past Encounters Encounter ID Performer Location Encounter Start Date Encounter Closed Date Diagnosis/Indication Diagnosis SNOMED-CT Code Diagnosis ICD10 Code Diagnosis Note [id number] Margaret Yip NP, [facility] [address] [facility],[place] [address] 08/20/2017 10:07:08 08/20/2017 12:10:55 Adult health examination 268632719 Z00.00 discuss healthy diet/exerc ise Coronary atherosclerosis 000722868 I25.[address] Murphy, asymptomat ic Osteoarthr itis of knee 925376242 M17.12 injections with NEOS History of malignant neoplasm of breast 529180485 Z85.3 up to date unilateral mammo, right mastectomy History of malignant basal cell neoplasm of skin 885296089 Z85.828 see's dermatolog ist q yr, using sunscreen Hypothyroidism 31685703 E03.9 stable, labs reviewed Hypercholesterolemia 136 42599 E78.00 stable History of artificial heart valve 078629696 Z95.2 2013 bovine valve [id number] Margaret Yip NP, [facility] [address] [facility],[place] [address] 12/24/2017 09:43:38 12/24/2017 15:27:56 Osteoarthritis of knee 736818590 M17.12 Aortic valve stenosis 60 650272 I35.0 Hypercholesterolemia 136 67592 E78.00 stable Hypothyroidism 95912707 E03.9 stable, labs reviewed [id number] Margaret Yip NP, [facility] [address] [facility] [address], [place] [address] 02/10/2018 10:18:48 02/11/2018 10:40:47 Carotid bruit 310277579 R09.89 Osteoarthr itis of knee 043831287 M17.12 Hypercholesterolemia 136 16256 E78.00 stable Hypothyroidism 42996211 E03.9 stable, labs reviewed Aortic valve stenosis 60 077347 I35.0 [id number] Margaret Yip NP, [facility] [address] [facility] [address], [place] [address] 03/17/2018 15:32:40 03/17/2018 16:33:27 Pain in left knee 5762511650 93212 M25.562 [id number] Margaret Yip NP, [facility] [address] [facility] [address], [place] [address] 04/16/2018 11:00:16 04/16/2018 11:52:32 Hypothyroidism 55128638 E03.9 stable Hypercholesterolemia 136 97209 E78.00 stable Aortic valve stenosis 60 281735 I35.0 recent echo Coronary atherosclerosis 329402702 I25.[address] Murphy, asymptomat ic Osteoarthr itis of knee 463692947 M17.12 will be scheduling knee replacemen t History of acute kidney injury 4081424212 94465 Z87.448 Bladder mu scle dysfunction - overactive 512559737 N32.81 Body mass index 30+ - obesity 555517259 Z68.39 [id number] July DAINA Guerra [facility] [address] [facility] [address] [employer] [place] [address] 05/02/2018 14:08:36 05/02/2018 15:01:27 Aortic valve stenosis 33196978 I35.0 will see cardio Aortic lara ve regurgitation 43197766 I35.1 will see cardio Tight chest 12638488 R07 .89 resolved Acute on c hronic diastolic heart failure 733626738 I50.33 Dyspnea on exertion 6084 5006 R06.09 cardiac vs pulmonary PFT and pulmonary consults were recommende d will check repeat of CT of chest and order f/u tests/cons ults pending results Multiple n odules of lung 065616097 R91.8 [id number] Margaret Yip NP, S [facility] [address] [facility],[place] [address] 07/08/2018 10:00:55 07/08/2018 12:12:00 Osteoarthritis of knee 216073729 M17.12 hold on scheduling of left knee replacemen t Hypothyroidism 22597267 E03.9 stable Hypercholesterolemia 136 39421 E78.00 stable Congestive heart failure [id number] I50.9 [id number] Alejo Clark [facility] [address] [facility] [address] 08/25/2019 09:48:46 08/25/2019 10:46:45 Adult health examination [id number] Z00.01 doing great and no major problems except her left knee no cardiac sx will have her referred to ortho when able Active or passive immunization [id number] Z23 will order [id number] Alejo Clark [address], [place] [employer] [facility] [place] [address] 02/01/2020 11:19:38 02/01/2020 15:49:55 Osteoarthritis of knee [id number] M17.9 pt is cleared for her knee surgery [id number] Alejo Clark [facility] [address] [facility],[place] [address] 05/25/2020 08:39:59 05/25/2020 10:25:34 Aortic valve stenosis 76426303 I35.0 will plan on having her undergo a new echo this summer and we will have her review with her cardiologi st Hypothyroidism 01643892 E03.9 has been stable and without issue will have to do this before next visit for lab Hypercholesterolemia 136 32398 E78.00 will need to get before next visti Edema of l ower extremity 737435041 R60.0 her left leg is no longer swollen and she cont [place] with [place] [id number] Alejo Clark [facility] [address] [facility] [place] [address] 01/19/2022 11:02:54 01/19/2022 13:23:19 Hypothyroidism 18455698 E03.9 has been stable and without issue will have to do this before next visit for lab Aortic valve stenosis 60 615299 I35.0 will plan on having her undergo a new echo and we will have her review with her cardiologi st Hypercholesterolemia 136 37355 E78.00 will need to get before next visit Congestive heart failure 75967042 I50.9 no issues and not an issue [id number] Alejo Clark DO [facility] [address] [facility],[place] [address] 07/11/2022 09:13:17 07/11/2022 09:57:40 Congestive heart failure 15086634 I50.9 no issues and not an issueecho next week already set up then card will see in dec /jan Hypothyroidism 13431281 E03.9 has been stable and without issue will have to do this before next visit for lab Hypercholesterolemia 136 40299 E78.00 will need to get before next visit Advance care planning 71 7442331 Z71.89 'doing well [id number] TARAN SANCHES [facility] [address] [facility],[place] [address] 12/24/2022 10:30:17 12/25/2022 09:58:37 Aortic valve stenosis 22356131 I35.0 stablerece nt echo Congestive heart failure 65665804 I50.1 stablerece nt echo stable Hypercholesterolemia 136 63847 E78.2 stable Hypothyroidism 76089270 E03.8 will set up with lab-work Vertigo 407172547 R42 will set up with blood work and CT head and neck?verti go vs sinusitis [id number] Alejo Clark DO [facility] [address] [facility],[place] [address] 02/25/2023 10:03:01 02/25/2023 11:39:51 Congestive heart failure 41410029 I50.1 no issues and not an issueecho next week already set up then card will see in dec Hypercholesterolemia 136 69404 E78.2 will need to get before next visit Hypothyroidism 15583541 E03.8 has been stable and without issue will have to do this before next visit for lab Positional vertigo 85630 4002 H81.10 Vertigo 349023419 R42 [id number] Alejo Clark, [facility] [address] [facility],[place] [address] 03/29/2023 13:40:34 03/29/2023 14:44:03 Congestive heart failure 13318909 I50.1 no issues and not an issueecho next week already set up then card will see in dec Hypercholesterolemia 136 99811 E78.2 will need to get before next visit Hypothyroidism 99620486 E03.8 has been stable and without issue will have to do this before next visit for lab Positional vertigo 79612 4002 H81.10 she has been taking diltiazem every night she will stop this and seeif it helps am dizzyness Hypercalcemia 76512636 E 83.52 we havie follow ca levels the evid is now negative nl pth nl ca++ [id number] Alejo Clark [facility] [address] [facility],[place] [address] 07/16/2023 14:50:07 07/16/2023 15:38:32 Congestive heart failure 46398940 I50.1 no issues and not an issueecho next week already set up then card will see in dec Hypercholesterolemia 136 57388 E78.2 will need to get before next visit Hypothyroidism 70520262 E03.8 has been stable and without issue will have to do this before next visit for lab [id number] [facility] [address] [facility],[place] [address] 01/22/2024 10:03:54 01/22/2024 11:11:04 Depression screening 734464597 Z13.31 negative Congestive heart failure 94360285 I50.1 no issues and not an issueecho next week already set up then card will see in dec Hyperglycemia 77398901 R 73.9 Health Concerns Section Related Observation LastModified by Organization Stephanie ls LastModified Time None Recorded Concern Status LastModified by Organization Details LastModified Time None Recorded Advance Directives Directive None Recorded Payers Encounter Date Sequence Insurance Name Policy Number Policy Chow Covered Member ID Chow Member ID Guarantor Name 12/24/2022 1 MEDICARE B-[place]: [facility] Emma A Angelkwanowski [id number] Emma Angelodowski 12/24/2022 2 WPS - FOR LIFE (MEDICARE SUPPLEMENT) Emma Delfina [id number] Emma Angelodowski 02/25/2023 1 MEDICARE B-[place]: [facility] Emma A Jagodowski [id number] Emma Jagodowski 02/25/2023 2 WPS - FOR LIFE (MEDICARE SUPPLEMENT) Emma Angelodowski [id number] Emma Jagodowski 03/29/2023 1 [facility] Emma Rosemarie Angelodowski [id number] Emma Jagodowski 03/29/2023 2 WPS - FOR LIFE (MEDICARE SUPPLEMENT) Emma Delfina [id number] Emma Jagodowski 07/16/2023 1 MEDICARE B-ME: [facility] Emma A Jagodowski [id number] Emma Jagodowski 07/16/2023 2 WPS - FOR LIFE (MEDICARE SUPPLEMENT) Emma Angelaowski [id number] Emma Jagodowski 01/22/2024 1 MEDICARE B-ME: [facility] Emma A Jagodowski [id number] Emma Jagodowski 01/22/2024 2 WPS - FOR LIFE (MEDICARE SUPPLEMENT) Emma Angelaowski [id number] Emma Angelaowski Notes Date Note Type Note Provider Name and Address Organization Details Recorded Time 3 text/htm l c/o dizziness the patient reports dizziness for te past 4 mosfeels very woozy, tends to lose her balance much easiercatching herself a lot no chest pain, no sobno headaches, no blurred the patient gets more dizziness with looking up or downshe notices it happens with whipping her head not really with positional changes, sometimes with turning over it bed will f/u with patient after lab work and CT TARAN SANCHES [address] [place] [address], [place], [address], [facility] 12/24/2022 10:53:22 3 text/htm l here for chk on dizzinesswoke in am last november with sudden onset of dizzinesswas fine the day beforeso bad she relates she couldnt walk steadily at firstrelates that any sudden movement will cause her to get dizzyhas tried numerous meds and otc and she is using scopolamine patch with some relief Alejo RosemarieKateryna Clark DO [address] [place] [address], [phone], [facility] 02/25/2023 11:05:31 3 text/htm l Care Management - HypertensionReported bypatient.Self Care:not under emotional stress Severity:symptoms are improving; does not interfere with daily activities Associated Symptoms:no dizziness; no lightheadedness; no chest pain; no shortness of breath; no palpitations; no edema; no calf muscle cramps; no blurred vision; no confusion; no headaches; no fatigue here for rechk and relates is doing betteroverall she is still having dizziness steven in the am but states the PT has helped her a great dealrelates the morning is worse for 1-2 hrs then she is completely asymptomatic for the rest of the day and night seems the morning is the only issueafter discussion she is noted to have diltiazem taken at night Alejo Clark DO [address] [place] [address], [phone], [facility] 03/29/2023 14:11:41 4 text/htm l here for rechk and is feeling good no cp no sobvertigo is goneno edema Alejo Clark DO [address] [place] [address], [phone], [facility] 07/16/2023 15:30:11 4 text/htm l here for rechk and is feeling goodno sob no cp Alejo Clark DO [address] [place] [address], [phone], [facility] 01/22/2024 11:09:27 OBGyn Episode No OBEpisode recorded.
--- OUTSIDE RECORDS SUMMARY | 2024-06-23 14:46 | XMS_ITS | Continuity of Care Document ---
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 Medication Details Route Status Patient Instructions Prescription Expires Prescription Number Last Dispense Date Ordering Provider Order Date Order Qty Source ATENOLOL (ATENOLOL), 50 MG, TABLET, ORAL, [employer] 1000 ea. BOTTLE Active [id number] 4 2023 90 Pharmac y Data Transac tion Service Facilit y ATENOLOL (ATENOLOL), 50 MG, TABLET, ORAL, [employer] 1000 ea. BOTTLE Active [id number] 4 2023 90 Pharmac y Data Transac tion Service Facilit y ATORVASTATI N CALCIUM (ATORVASTAT IN CALCIUM), 10 MG, TABLET, ORAL, [employer]OHAN, 1000 ea. BOTTLE Active [id number] 4 2023 90 Pharmac y Data Transac tion Service Facilit y ATORVASTATI N CALCIUM (atorvastat in calcium), 10 MG, TABLET, ORAL, [employer], 1000 ea. BOTTLE Active [id number] 4 2023 90 Pharmac y Data Transac tion Service Facilit y CARDIZEM CD (DILTIAZEM HCL), 240 MG, CAP ER 24H, ORAL, [employer], 90 ea. BOTTLE Active [id number] 4 2023 90 Pharmac y Data Transac tion Service Facilit y CICLOPIROX (CICLOPIROX OLAMINE), 0.77%, CREAM (G), TOPICAL, [facility] 90 g TUBE Active [id number] 4 2023 90 Pharmac y Data Transac tion Service Facilit y DILTIAZEM 24HR ER (CD) (diltiazem HCl), 240 MG, CAP ER 24H, ORAL, [employer] 90 ea. BOTTLE Active [id number] 4 2023 90 Pharmac y Data Transac tion Service Facilit y DOXYCYCLINE HYCLATE (doxycyclin e hyclate), 100 MG, CAPSULE, ORAL, [employer], 500 ea. BOTTLE Active [id number] 4 2023 20 Pharmac y Data Transac tion Service Facilit y FAMOTIDINE (famotidine ), 20 MG, TABLET, ORAL, [employer] 1000 ea. BOTTLE Active [id number] 4 2023 90 Pharmac y Data Transac tion Service Facilit y FAMOTIDINE (famotidine ), 20 MG, TABLET, ORAL, [employer] 1000 ea. BOTTLE Active [id number] 4 2023 90 Pharmac y Data Transac tion Service Facilit y FLUOCINOLON E ACETONIDE (fluocinolo ne acetonide), 0.01 %, SOLUTION, TOPICAL, [employer], 60 ml BOTTLE Active [id number] 4 2023 60 Pharmac y Data Transac tion Service Facilit y FUROSEMIDE (furosemide ), 20 MG, TABLET, ORAL, [employer], 1000 ea. BOTTLE Active [id number] 4 2023 270 Pharmac y Data Transac tion Service Facilit y FUROSEMIDE (furosemide ), 20 MG, TABLET, ORAL, [employer], 1000 ea. BOTTLE Active [id number] 4 2023 270 Pharmac y Data Transac tion Service Facilit y LEVOTHYROXI NE SODIUM (levothyrox ine sodium), 25 MCG, TABLET, ORAL, [employer], 1000 ea. BOTTLE Active [id number] 4 2023 68 Pharmac y Data Transac tion Service Facilit y LEVOTHYROXI NE SODIUM (levothyrox ine sodium), 25 MCG, TABLET, ORAL, [employer], 1000 ea. BOTTLE Active [id number] 4 2023 68 Pharmac y Data Transac tion Service Facilit y SCOPOLAMINE (scopolamin e), 1 MG/3 DAY, PATCH TD 3, TRANSDERM, [employer], 10 ea. INDIO Canceltom d [id number] : 2022 0 Pharmac y Data Transac tion Service Facilit y Immunizations Combined list of available immunizations from the Department of Defense and Veterans Affairs facilities. Immunization Series Date Given Administered By Site Reaction Lot Number CVX Code Drug Application Technical Designer Status Comments Source COVID-19, mRNA, LNP-S, PF, 30 mcg/0.3 mL dose 2020 [employer] (PFR) Not Given COVID-19, mRNA, LNP-S, PF, 30 mcg/0.3 mL dose [facility] influenza, high-dose, quadrivalent 2020 BOGDASARIAN, () Not Given influenza , high-dose , quadrival ent [facility] Influenza vaccine, quadrivalent, adjuvanted 2019 BOGDASARIAN, () Not Given Influenza vaccine, quadrival ent, adjuvante d [facility] Influenza, high dose seasonal 2018 BOGDASARIAN, () Not Given Influenza , high dose seasonal DoD pneumococcal polysaccharid e PPV23 2015 TANMAY GOMEZ () Not Given pneumococ james polysacch aride PPV23 DoD zoster live 2013 MTATHEW DAIGLE () Not Given zoster live DoD Social History Combined list of available smoking, tobacco, and other social history from Department of Defense and Veterans Affairs facilities. Social History Type Response Date Comment Sour e This section is an empty social history section. DoD
== END 2024-06-23 12:05 | disposition home or self-care (01) ==
LOC: HO.10HDL 12:04
PROVIDERS: Visit Provider Internal Medicine
DX: R73.9 Hyperglycemia, unspecified (principal)
CPT/HCPCS: 36415; 83036

== ENCOUNTER 2024-09-11 08:47 | Outpatient (REF) | payer MEDICARE, OTHER, SELFPAY ==
--- NOTE | ~2024-09-11 | US_ITS ---
EXAMINATION: US DIAGNOSTIC ULTRASOUND BREAST, RIGHT CLINICAL INFORMATION: Trauma and pain to area right chest wall postmastectomy bed and up to just below the clavicle patient had trauma 8 months ago.. COMPARISON: Comparison is made with relevant prior imaging. TECHNIQUE: Ultrasound of the breast is performed with real-time reed scale imaging and color Doppler. FINDINGS: Targeted color Doppler ultrasound scanning in the post mastectomy bed upper outer quadrant and up to just below the clavicle demonstrates normal subcutaneous tissue. There is no focal suspicious finding. There is no solid mass, architectural abnormality, duct ectasia, or edema in the soft tissue planes. Results are discussed with the patient at time of visit. US/US breast RT limited mamm only IMPRESSION: No sonographic abnormality to correlate with the area of patient's pain and posttrauma. Recommend clinical evaluation and follow-up. ASSESSMENT: BI-RADS 1: Negative RECOMMENDATION: Clinical evaluation and follow-up. Electronically signed by: Yessica Childs DO 09/11/2024 09:29 AM EDT
--- OUTSIDE RECORDS SUMMARY | 2024-09-11 09:01 | XMS_ITS | Data Portability ---
Author Organization [facility], Home Service Address [address] [place] [address] Assessment Encounter Date Assessment Date Assessment LastModified by Organization Details LastModified Time 02/25/2023 02/25/2023 [address] [place] [address] (OIL FILTERS INSPECTOR) [facility] MODERATE MUST MEET 2 OUT OF 3 [...] COVERED Not available 02/25/2023 11:04:54 03/29/2023 03/29/2023 [address] [place] [address] (OIL FILTERS INSPECTOR) [facility] MODERATE MUST MEET 2 OUT OF 3 [...] COVERED Not available 03/29/2023 14:11:28 07/16/2023 07/16/2023 [address] [place] [address] (OIL FILTERS INSPECTOR) [facility] MODERATE MUST MEET 2 OUT OF [...] COVERED Not available 07/16/2023 15:23:56 01/22/2024 01/22/2024 [address] [place] [address] (OIL FILTERS INSPECTOR) [facility] MODERATE MUST MEET 2 OUT OF [...] Organization Details Last Modified Time Details Appointments MEDICARE ANNUAL WELLNESS 2024 09:00A M DR CLARK Not available Not available Not available Lab lipid panel, blood 2024 025 [facility], [address] [place] [address], [place], [address], 07/27/2024 10:50:20 CBC w/ auto diff 2024 025 [facility], [address] [place], [address], 07/27/2024 10:50:20 CMP, serum or plasma 2024 025 [facility], [address] [place] [address], [address], 07/27/2024 10:50:20 TSH + free T4, serum 2024 025 [facility], [address] [place] [address], [address], 07/27/2024 10:50:20 HbA1c (hemoglob in A1c), blood 2023 024 [facility], [address] [place] [address], [address], 01/22/2024 11:18:24 lipid panel, blood 2023 024 [facility], [address] [place] [address], [address], 07/23/2023 08:04:16 CMP, serum or plasma 2023 024 [facility], [address] [place] [address], [address], 07/23/2023 08:04:16 CBC w/ auto diff 2023 024 [facility], [address] [place] [address], [address], 07/16/2023 15:25:42 TSH + free T4, serum 2023 024 [facility], [address] [place] [address], [address], 07/16/2023 15:25:42 Referral vestibula r therapy referral 2022 023 [facility], [address] [place] [address], [place], [address], 03/08/2023 07:13:51 Procedures None recorded. Surgeries None recorded. Imaging MAMMO, diagnosti c, digital, bilateral - pt sustained trauma to right breast 8 months ago 2024 025 [facility], [address] [place], [address], 08/19/2024 09:03:53 Medication Orders scopolami ne 1 mg over 3 days transderm al patch 2022 023 [id number], [address] [place], [place], [phone], 03/29/2023 13:57:53 Patient TargetsNo targets recorded. Patient Instructions Encounter Date Encounter Id Patient Instructions Last Modified By Organization Details Last Modified Time 02/25/2023 [id number] pulse oximetry* Not available 02/25/2023 11:03:10 03/29/2023 [id number] hypercalcemia: care instructions Not available 03/29/2023 14:03:36 pulse oximetry* ISAEL Not available 03/29/2023 14:20:23 01/22/2024 [id number] learning about high blood sugar Not available 01/22/2024 11:07:42 pulse oximetry* Not available 01/22/2024 11:07:43 heart failure: care instructions Not available 01/22/2024 11:07:43 learning about heart failure Not available 01/22/2024 11:07:42 07/27/2024 [id number] pulse oximetry* Not available 07/27/2024 10:48:55 Reason for Referral Vestibular Therapy Referral for Positional vertigo Referring Physician: Alejo Clark, Internal Medicine, Encounter Date: 02/25/2023 Results Created Date Observation Date Name Description Value Unit Range Abnormal Flag Note LastModifiedBy Organization Detail LastModifiedTime 02/26/2002/25/2023 pulse oxime try* Result 98 Not Available [facility] [address], [place], [address], 02/15/2023 16:18:03 03/29/20 23 03/29/2023 pulse oxime try* Result 99% Not Available [facility] [address], [place], [address], 03/27/2023 09:28:53 01/22/20 24 01/22/2024 pulse oxime try* Result 95 Not Available [facility] [address], [place], [address], 01/20/2024 11:23:25 06/23/19 25 06/23/2024 HbA1c (hemo globi n A1c), blood A1C 5.7 normal Not Available [facility] (Medical Records) [address] [facility], [place], [address], 06/24/2024 11:13:52 07/28/1907/27/2024 pulse oxime try* Result 98% Not Available [facility] [address], [place], [address], 07/24/2024 09:51:52 10/25/1910/25/2023 MAMMO , scree nany, digit al, bilat eral No observ ation record ed. [email or web address] [facility] [address] [place], [address], 10/25/2023 15:44:07 Result Notes None recorded. Problems Name Problem SNOMED Code Status Onset Date Resolution Date Notes Provider Name and Address Organization Details Recorded Time Congesti ve heart failure 42035264 Completed 201808/25/2019 Alejo Clark DO [address] [facility], [place], [address], [facility] 11:46:30 Coronary atherosc lerosis 220265860 Completed 201702/01/2020 Dr. monsoon cardiolo gist Alejo Clark, DO [address] [facility], [place], [address], [facility] 0 12:24:43 Hypothyr oidism 71836277 Active 2017 Not Available [facility] 3 18:28:21 Hypercho lesterol emia 66870444 Active 2017 Not Available [facility] 3 18:28:21 History of malignan t neoplasm of breast 364264937 Active 2017 left in 20's, right -2006 mastecto my Not Available [facility] 3 18:28:21 Pulmonar y embolism 00792616 Completed 201707/09/2017 s/p chemo Margaret Yip, OIL FILTERS INSPECTOR, [address] [place], [address], [facility] 8 15:27:09 Aortic valve stenosis 98185743 Active 2018 s/p bovine valve 2014 which was replaced Not Available [facility] 3 18:28:21 Osteoart hritis of knee 356095636 Active 2017 left, [facility] cortison e Not Available [facility] 3 18:28:21 Congesti ve heart failure 35769587 Active 2021 Not Available [facility] 3 18:28:21 Dizzines s 318275163 Active 2022 Not Available [facility] 3 18:28:21 Vertigo 041804755 Active 2022 Not Available [facility] 3 18:28:21 Hypercal cemia 24180591 Active 2022 Not Available [facility] 3 18:28:21 Position al vertigo 026675306 Active 2022 Alejo Clark, DO [address] [place], [address], [facility] 3 10:54:44 Hypergly cemia 72524317 Active 2023 Alejo Clark, [address], [address], [facility] Internal [facility] 4 11:07:18 Mass of right breast 4391499402 9556851 Active 2024 Alejo Clark, [address], [address], [facility] 5 10:46:05 Lump in upper outer quadrant of right breast 1802122973 50281 Active 2024 Alejo Clark, [address], [address], [facility] 5 10:46:19 Mass of left breast 7763191776 9868287 Active 2024 Alejo Clark, [address], [address], [facility] 5 11:02:32 Problem Notes None recorded. Procedures Surgical History Date Name Laterality Status Provider Name and Address Organization Details Recorded Time 019 transcatheter aortic valve replacement completed Margaret Yip NP, [address] [place] [address], [address], [facility] 06/06/2018 08:43:40 006 Breast Surgery completed Margaret Yip NP, [address] [place] [address], [address], [facility] 12/24/2017 08:43:23 Breast Biopsy completed Margaret monte NP, [address] [place] [address], [address], [facility] 12/24/2017 08:43:40 Imaging Results Imaging Date Name Status LastModified by Organiz ation Details LastModified Time 10/25/2023 MAMMO, screening, digital, bilateral completed [email or web address] [facility] [address], [place], [address], 10/25/2023 15:44:07 Procedure Notes None recorded. Medical Equipment None Reported. Allergies Allergen ID Allergen Name Allergen Category Reaction Reaction Severity Criticality Documentation Date Start Date Code Code System Note Provider Name and Address Organization Details Recorded Time 505 Product containin g penicilli n (product) medicatio n Not available Not available Not available 07/09/2017 68938 8001 SNOMED upset stoma ch Maggie membreno [facility] Internal [facility] 0 10:02:46 506 vancomyci n medicatio n Not available Not available Not available 07/09/2017 93289 RxNorm synco pe Maggie membreno [facility] 0 10:02:54 Medications Name Sig Start Date Stop Date Status Note LastModified by Organization Details LastModified Time doxycycline hyclate 100 mg capsule TAKE 1 CAPSULE BY MOUTH TWICE DAILY WITH FOOD FOR 10 DAYS. PHOTOSENS ITIVE MEDICATIO N. 01/21 completed Not Available Not Available Not Available clindamycin HCl 300 mg capsule TAKE 2 CAPSULE BY MOUTH 1 HOUR BEFORE APPOINTME T 07/27 completed Not Available Not Available Not Available atorvastati n 10 mg tablet TAKE [...] DAY, ALTERNATI NG WITH ONE-HALF (1/2) TABLET 2024 active Not Available Not Available Not Avai lable Tenoretic 50 50 mg-25 mg tablet Take [...] mg tablet TAKE 1 TABLET DAILY NEEDED 2024 active Not Available Not Available Not Avai lable meclizine 25 mg tablet TAKE 1 TABLET BY MOUTH DAILY NEEDED FOR MOTION SICKNESS active Not Available Not Available No t Available mupirocin 2 % topical ointment 12/24 completed Not Available Not Available Not Available furosemide 20 mg tablet TAKE 1 TABLET THREE TIMES A DAY 2024 active Not Available Not Available Not Avai lable fluocinolon e 0.01 % topical solution active [...] levothyroxi ne 25 mcg 1tab, alt w/ &1/2 08/24 completed Not Available Not Available Not Available Vitamin D3 active Not Available Not Av ailable Not Available Eliquis 5 mg tablet Take 2 tablets every day by oral route for 30 days. 08/24 completed Not Available Not Available Not Available Eliquis 2.5 mg tablet 1 po bid 01/19 completed Not Available Not Available Not Available Fluzone High-Dose 5160-0679 (PF) 180 mcg/0.5 mL intramuscul ar syringe 03/17 completed Not Available Not Available Not Available Fluzone High-Dose 2018- (PF) 180 mcg/0.5 mL intramuscul ar syringe 08/24 completed Not Available Not Available Not Available Fluad Quad 9859-1337(6 5yr up)(PF) 60 mcg (15 mcg x 4)/0.5mL IM syringe 07/12 completed Not Available Not Available Not Available Vitals Date Recorded Body height Body weight Heart rate Oxygen saturation Oxygen saturation in Arterial blood by Pulse oximetry Systolic blood pressure Diastolic blood pressure Provider Name and Address Organization Details Last Updated DateTime 3 154.31 cm 94409.8 6 g 75 /min 98 % 98 % 131 mm[Hg] 72 mm[Hg] Angelica [facility] 3 10:15:42 Date Recorded Body height Body mass index (BMI) Body weight Heart rate Oxygen saturation Oxygen saturation in Arterial blood by Pulse oximetry Systolic blood pressure Diastolic blood pressure Provider Name and Address Organization Details Last Updated DateTime 3 154.31 cm 28 kg/m2 39442.0 8 g 84 /min 99 % 99 % 142 mm[Hg] 71 mm[Hg] Angelica [facility] 3 13:47:23 Date Recorded Body height Body mass index (BMI) Body weight Heart rate Oxygen saturation Oxygen saturation in Arterial blood by Pulse oximetry Systolic blood pressure Diastolic blood pressure Provider Name and Address Organization Details Last Updated DateTime 4 154.31 cm 29 kg/m2 86289.0 4 g 85 /min 95 % 95 % 150 mm[Hg] 82 mm[Hg] Annika Lyons [facility] 4 14:55:08 Date Recorded Body height Body mass index (BMI) Body weight Heart rate Oxygen saturation Oxygen saturation in Arterial blood by Pulse oximetry Systolic blood pressure Diastolic blood pressure Provider Name and Address Organization Details Last Updated DateTime 4 152.4 cm 28.5 kg/m2 42336.4 9 g 87 /min 95 % 95 % 136 mm[Hg] 70 mm[Hg] Alejo Clark, DO [address] [place], [address] [facility] 4 10:37:07 Date Recorded Body height Body mass index (BMI) Body weight Heart rate Oxygen saturation Oxygen saturation in Arterial blood by Pulse oximetry Systolic blood pressure Diastolic blood pressure Provider Name and Address Organization Details Last Updated DateTime 5 152.4 cm 27.5 kg/m2 72828.5 2 g 80 /min 98 % 98 % 138 mm[Hg] 88 mm[Hg] June Nirav [facility] 5 10:33:24 Social History Question Answer Notes LastModified by Organizat ion Details LastModified Time Tobacco Smoking Status Former Smoker smoked in her 20s Angelica Oseas membreno [facility] 03/29/2023 13:45:38 What Was The Date Of Your Most Recent Tobacco Screening? 07/27/2024 [email or web address] Information not available 07/27/2024 Sex: Unknown Functional Status Question Answer Note LastModified by Organization D etails LastModified Time Do you or have you ever used any other forms of tobacco or nicotine? No Information not available 07/11/2022 Mental Status None recorded. Family History Relationship [...] influenza, unspecified formulation 2 completed Not Available [facility] 12/26/2022 18:28:22 Influenza, split virus, quadrivalent, preservative 8 completed Not Available [facility] 12/26/2022 18:28:22 Influenza, split virus, quadrivalent, preservative 9 completed Not Available [facility] 12/26/2022 18:28:22 Influenza, split virus, quadrivalent, preservative 0 completed Not Available [facility] 12/26/2022 18:28:22 Influenza, adjuvanted, trivalent, PF 7 completed Not Available [facility] 12/26/2022 18:28:22 pneumococcal, unspecified formulation 0 completed Not Available [facility] 12/26/2022 18:28:22 pneumococcal, unspecified formulation 5 completed Not Available [facility] 12/26/2022 18:28:22 Past Encounters Encounter ID Performer Location Encounter Start Date Encounter Closed Date Diagnosis/Indication Diagnosis SNOMED-CT Code Diagnosis ICD10 Code Diagnosis Note [id number] DO Shanda [facility] [address] [facility],[place] [address] 08/20/2017 10:07:08 08/20/2017 12:10:55 Adult health examination 641976221 Z00.00 discuss healthy diet/exerc ise Coronary atherosclerosis 266516872 I25.[address] Murphy, asymptomat ic Osteoarthr itis of knee 736260112 M17.12 injections with NEOS History of malignant neoplasm of breast 627525123 Z85.3 up to date unilateral mammo, right mastectomy History of malignant basal cell neoplasm of skin 885772533 Z85.828 see's dermatolog ist q yr, using sunscreen Hypothyroidism 78650390 E03.9 stable, labs reviewed Hypercholesterolemia 136 00537 E78.00 stable History of artificial heart valve 054098541 Z95.2 2014 bovine valve [id number] Alejo Clark [facility] [address] [facility],[place] [address] 12/24/2017 09:43:38 12/24/2017 15:27:56 Osteoarthritis of knee 960624508 M17.12 Aortic valve stenosis 60 824166 I35.0 Hypercholesterolemia 136 96115 E78.00 stable Hypothyroidism 74775456 E03.9 stable, labs reviewed [id number] Alejo Clark [facility] [address] [facility],[place] [address] 02/10/2018 10:18:48 02/11/2018 10:40:47 Carotid bruit 598066912 R09.89 Osteoarthr itis of knee 190311134 M17.12 Hypercholesterolemia 136 11687 E78.00 stable Hypothyroidism 96592493 E03.9 stable, labs reviewed Aortic valve stenosis 60 593303 I35.0 [id number] Alejo Clark [facility] [address] [facility],[place] [address] 03/17/2018 15:32:40 03/17/2018 16:33:27 Pain in left knee 8265378770 59590 M25.562 [id number] Alejo Clark [facility] [address] [facility],[place] [address] 04/16/2018 11:00:16 04/16/2018 11:52:32 Hypothyroidism 56899725 E03.9 stable Hypercholesterolemia 136 05844 E78.00 stable Aortic valve stenosis 60 890154 I35.0 recent echo Coronary atherosclerosis 350430757 I25.[address] Murphy, asymptomat ic Osteoarthr itis of knee 254689930 M17.12 will be scheduling knee replacemen t History of acute kidney injury 3008774760 34830 Z87.448 Bladder mu scle dysfunction - overactive 301009804 N32.81 Body mass index 30+ - obesity 511894441 Z68.39 [id number] Alejo Clark [facility] [address] [facility] [address] [place] [address] 05/02/2018 14:08:36 05/02/2018 15:01:27 Aortic valve stenosis 79443229 I35.0 will see cardio Aortic lara ve regurgitation 56998735 I35.1 will see cardio Tight chest 15210319 R07 .89 resolved Acute on c hronic diastolic heart failure 801755646 I50.33 Dyspnea on exertion 6084 5006 R06.09 cardiac vs pulmonary PFT and pulmonary consults were recommende d will check repeat of CT of chest and order f/u tests/cons ults pending results Multiple n odules of lung 235341805 R91.8 [id number] Alejo Clark [facility] [address] [facility],[place] [address] 07/08/2018 10:00:55 07/08/2018 12:12:00 Osteoarthritis of knee 312129119 M17.12 hold on scheduling of left knee replacemen t Hypothyroidism 64252862 E03.9 stable Hypercholesterolemia 136 26571 E78.00 stable Congestive heart failure 63884171 I50.9 [id number] Alejo Clark [facility] [address] [facility],[place] [address] 08/25/2019 09:48:46 08/25/2019 10:46:45 Adult health examination 505674933 Z00.01 doing great and no major problems except her left knee no cardiac sx will have her referred to ortho when able Active or passive immunization 992258959 Z23 will order [id number] Alejo Clark [facility] [address] [facility], [place] [address] 02/01/2020 11:19:38 02/01/2020 15:49:55 Osteoarthritis of knee 068131527 M17.9 pt is cleared for her knee surgery [id number] Alejo Clark [facility] [address] [facility], [place] [address] 05/25/2020 08:39:59 05/25/2020 10:25:34 Aortic valve stenosis 06677500 I35.0 will plan on having her undergo a new echo this summer and we will have her review with her cardiologi st Hypothyroidism 58043129 E03.9 has been stable and without issue will have to do this before next visit for lab Hypercholesterolemia 136 35451 E78.00 will need to get before next visti Edema of lenin retana extremity 755354760 R60.0 her left leg is no longer swollen and [place] cont [place] [id number] Alejo Clark [facility] [address] [facility],[place] [address] 01/19/2022 11:02:54 01/19/2022 13:23:19 Hypothyroidism 34344058 E03.9 has been stable and without issue will have to do this before next visit for lab Aortic valve stenosis 60 333002 I35.0 will plan on having her undergo a new echo and we will have her review with her cardiologi st Hypercholesterolemia 136 62144 E78.00 will need to get before next visit Congestive heart failure 09962567 I50.9 no issues and not an issue [id number] Alejo Clark DO [facility] [address] [facility],[place] [address] 07/11/2022 09:13:17 07/11/2022 09:57:40 Congestive heart failure 95866161 I50.9 no issues and not an issueecho next week already set up then card will see in dec /jan Hypothyroidism 35050554 E03.9 has been stable and without issue will have to do this before next visit for lab Hypercholesterolemia 136 59993 E78.00 will need to get before next visit Advance care planning 71 3953287 Z71.89 'doing well [id number] Alejo Clark [facility] [address] [facility],[place] [address] 12/24/2022 10:30:17 12/25/2022 09:58:37 Aortic valve stenosis 72226707 I35.0 stablerece nt echo Congestive heart failure 72663099 I50.1 stablerece nt echo stable Hypercholesterolemia 136 93971 E78.2 stable Hypothyroidism 64966941 E03.8 will set up with lab-work Vertigo 875092284 R42 will set up with blood work and CT head and neck?verti go vs sinusitis [id number] Alejo Clark [facility] [address] [facility] [address],[place] [address] 02/25/2023 10:03:01 02/25/2023 11:39:51 Congestive heart failure 06422044 I50.1 no issues and not an issueecho next week already set up then card will see in dec Hypercholesterolemia 136 28708 E78.2 will need to get before next visit Hypothyroidism 61908949 E03.8 has been stable and without issue will have to do this before next visit for lab Positional vertigo 05353 4002 H81.10 Vertigo 458367185 R42 [id number] Alejo Clark [facility] [address] [facility],[place] [address] 03/29/2023 13:40:34 03/29/2023 14:44:03 Congestive heart failure 68329215 I50.1 no issues and not an issueecho next week already set up then card will see in dec Hypercholesterolemia 136 73283 E78.2 will need to get before next visit Hypothyroidism 95657620 E03.8 has been stable and without issue will have to do this before next visit for lab Positional vertigo 49558 4002 H81.10 she has been taking diltiazem every night she will stop this and seeif it helps am dizzyness Hypercalcemia 33801744 E 83.52 we havie follow ca levels the evid is now negative nl pth nl ca++ [id number] Alejo Clark [facility] [address] [facility] [address],[place] [address] 07/16/2023 14:50:07 07/16/2023 15:38:32 Congestive heart failure 97909085 I50.1 no issues and not an issueecho next week already set up then card will see in dec Hypercholesterolemia 136 20579 E78.2 will need to get before next visit Hypothyroidism 44942251 E03.8 has been stable and without issue will have to do this before next visit for lab [id number] [facility] [address] [facility] [address],[place] [address] 01/22/2024 10:03:54 01/22/2024 11:11:04 Depression screening 806292295 Z13.31 negative Congestive heart failure 81806334 I50.1 no issues and not an issueecho next week already set up then card will see in dec Hyperglycemia 04053944 R 73.9 [id number] DO Shanda Olvera [facility] [address] [facility] [address],[place] [address] 07/27/2024 10:09:28 07/27/2024 11:06:28 Congestive heart failure 00573526 I50.1 no issues and not an issueecho next week already set up then card will see in dec Hypercholesterolemia 136 26605 E78.2 will need to get before next visit Hypothyroidism 11645877 E03.8 has been stable and without issue will have to do this before next visit for lab Depression screening 171 056389 Z13.31 negative Lump in up per outer quadrant of right breast 3720099926 72055 N63.11 from trauma from blow to right breast last summer Health Concerns Section Related Observation LastModified by Organization Detai ls LastModified Time None Recorded Concern Status LastModified by Organization Details LastModified Time None Recorded Advance Directives Directive None Recorded Payers Encounter Date Sequence Insurance Name Policy Number Policy Chow Covered Member ID Chow Member ID Guarantor Name 02/25/2023 1 MEDICARE [place]: NATIONAL [employer] Emma Mathis [id number] Emma Mathis 02/25/2023 2 WPS - FOR LIFE (MEDICARE SUPPLEMENT) Emma Mathis [id number] Emma Mathis 03/29/2023 1 [place]IC[place]: [facility] Emma Mathis [id number] Emma Mathis 03/29/2023 2 WPS - FOR LIFE (MEDICARE SUPPLEMENT) Emma Mathis [id number] Emma Mathis 07/16/2023 1 [place] NATIONAL [employer]MENT SERVICES Emma Mathis [id number] Emma Mathis 07/16/2023 2 WPS - FOR LIFE (MEDICARE SUPPLEMENT) Emma Mathis [id number] Emma Mathis 01/22/2024 1 [place]: [facility] Emma Mathis [id number] Emma Mathis 01/22/2024 2 WPS - FOR LIFE (MEDICARE SUPPLEMENT) Emma Mathis [id number] Emma Mathis 07/27/2024 1 MEDICARE [place]: [facility] Emma Mathis [id number] Emma Mathis 07/27/2024 2 WPS - FOR LIFE (MEDICARE SUPPLEMENT) Emma Mathis [id number] Emma Mathis Notes Date Note Type Note Provider Name and Address Organization Details Recorded Time 02/26/20 23 text/htm l here for chk on dizzinesswoke in am last november with sudden onset of dizzinesswas fine the day beforeso bad she relates she couldnt walk steadily at firstrelates that any sudden movement will cause her to get dizzyhas tried numerous meds and otc and she is using scopolamine patch with some relief Alejo Clark DO [address] [place] [address], [id number], [facility] 02/25/2023 11:05:31 03/29/20 23 text/htm l Care Management - HypertensionReported bypatient.Self [...] diltiazem taken at night Alejo Clark DO [address] [place], [address], [facility] 03/29/2023 14:11:41 07/16/19 24 text/htm l here for rechk and is feeling good no cp no sobvertigo is goneno edema Alejo Clark DO [address] [place], [address], [facility] 07/16/2023 15:30:11 01/22/20 24 text/htm l here for rechk and is feeling goodno sob no cp Alejo Clark DO [address] [place], [address], [facility] 01/22/2024 11:09:27 07/28/19 text/htm l Care Management - Acquired HypothyroidismReported bypatient.Medication Education:understands administration; understands effect of concurrent medications; understands missed doses; understands consequences of noncompliance Associated Symptoms:no abnormal weight gain; no tiredness; no dry skin; no cold intolerance; no constipation; no diarrhea; no goiterCare Management - Congestive Heart Failure (CHF)Reported bypatient.Self Care:not under emotional stress; no recent hospitalization Severity:symptoms are improving; does not interfere with daily activities Associated Symptoms:no chest pain; normal heartbeat; no chest tightness; no constant coughing; no blood from coughs; no shortness of breath; no fatigue; no limb swelling; no abdominal swelling; no appetite lossCare Management - HyperlipidemiaReported bypatient.Control:usually well controlled; improving; at goal Complications:no coronary artery disease; no heart attack; no cardiovascular disease; no pancreatitis; no stroke Alejo Clark DO [address] [place], [address], [facility] 07/27/2024 10:55:18 OBGyn Episode No OBEpisode recorded.
== END 2024-09-11 08:48 | disposition home or self-care (01) ==
LOC: HO.MAMMO 08:47
PROVIDERS: PCP Internal Medicine; Visit Provider Internal Medicine
DX: N63.11 Unspecified lump in the right breast, upper outer quadrant (principal)
CPT/HCPCS: 76642

== ENCOUNTER → 2024-09-11 09:00 | Outpatient (BNV) | payer MEDICARE, OTHER, SELFPAY | PROVIDERS: PCP Internal Medicine; Visit Provider Internal Medicine | DX: N64.4 Mastodynia (principal) | CPT/HCPCS: 76642 ==